=== PATIENT | female | born 1955 | race Hispanic/Latino ===

== ENCOUNTER → 2025-02-03 07:48 | Outpatient (ROUT) | payer SELFPAY ==
[2025-02-03 08:11] LABS: Hemoglobin A1C% w Est Avg Glu 6.6 % (4.0-6.0)
[2025-02-03 08:16] LABS: Alanine Aminotransferase 30 IU/L (<35); Albumin 4.3 g/dL (3.5-5.0); Albumin Globulin Ratio 1.3 (1.0-2.8); Alkaline Phosphatase 107 U/L (38-126); Aspartate Aminotransferase 28 IU/L (14-36); BUN Creatinine Ratio 34.2 (6-22); Bilirubin Total 0.5 mg/dL (0.2-1.3); Blood Urea Nitrogen 38 mg/dL (7-17); Carbon Dioxide 21 mmol/L (22-32); Chloride 107 mmol/L (98-107); Estimated Glomerular Filt Rate 53 mL/min (>60); Globulin 3.2 g/dL (1.7-4.1); Glucose 105 mg/dL (70-99); HEMOLYSIS < 15 (0-50); Potassium 5.1 mmol/L (3.4-5.1); Sodium 139 mmol/L (137-145); Total Protein 7.5 g/dL (6.3-8.2)
== END ==
LOC: LAB 07:49
PROVIDERS: Visit Provider Hospitalist
DX: E11.8 Type 2 diabetes mellitus with unspecified complications (principal); D64.9 Anemia, unspecified
CPT/HCPCS: 36415; 80053; 83036; 84443

== ENCOUNTER → 2025-02-10 08:00 | Outpatient (ROUT) | payer SELFPAY ==
[2025-02-10 08:38] LABS: Hematocrit 40.1 % (36-46); Hemoglobin 13.3 g/dL (12.0-16.0); Mean Corpuscular HGB Conc 33.1 % (30-36); Mean Corpuscular Hemoglobin 30.5 PG (26-34); Mean Corpuscular Volume 92.1 fL (80-100); Platelet Count 205 X10^3/uL (150-400); Red Blood Cell Count 4.36 X10^6/uL (4.0-5.2); Red Cell Distribution Width 15.4 % (11.6-14.8); White Blood Cell Count 6.1 X10^3/uL (4.5-11.0)
[2025-02-10 08:49] LABS: BUN Creatinine Ratio 29.3 (6-22); Blood Urea Nitrogen 27 mg/dL (7-17); Calcium 10.4 mg/dL (8.4-10.2); Carbon Dioxide 23 mmol/L (22-32); Chloride 109 mmol/L (98-107); Estimated Glomerular Filt Rate > 60 mL/min (>60); Glucose 129 mg/dL (70-99); HEMOLYSIS < 15 (0-50); Sodium 141 mmol/L (137-145)
[2025-02-10 09:20] LABS: Thyroid Stimulating Hormone 0.312 uIU/mL (0.47-4.68)
[2025-02-10 09:30] LABS: Hemoglobin A1C% w Est Avg Glu 6.6 % (4.0-6.0)
== END ==
LOC: LAB 08:04
PROVIDERS: Visit Provider Hospitalist
DX: I25.10 Atherosclerotic heart disease of native coronary artery without angina pectoris (principal); E03.9 Hypothyroidism, unspecified; E11.9 Type 2 diabetes mellitus without complications; I10 Essential (primary) hypertension; J44.9 Chronic obstructive pulmonary disease, unspecified
CPT/HCPCS: 36415; 80048; 83036; 84443; 85027

== ENCOUNTER 2025-03-02 15:55 | Observation (INO) | payer MEDICARE, MEDICAID, SELFPAY ==
[2025-03-02] VITALS (15 sets, daily range): BP systolic 94–135; BP diastolic 46–71; PULSE 52–60; RESP 15–20; TEMP 36.6–36.8; O2SAT 93–98; BMI 25.7
--- NOTE | 2025-03-02 15:59 | EKG_ITS ---
[facility] [address] [place] [id number] Test Date: 2025-03-02 Pat Name: ELLIOTT CAMACHO Department: [facility] Room: Gender: Female [employer] Steam: ANABELL : 1955 Requested By: Order Number: [id number] Reading MD: Octavio Wright MD Measurements Intervals [place] Rate: 57 P: 35 TX: 184 QRS: -6 QRSD: 84 T: -10 QT: 458 QTc: 445 Interpretive Statements Sinus bradycardia Minimal voltage criteria for LVH, may be normal variant ( R in aVL ) Electronically Signed On 03-03-2025 7:38:59 PDT by Octavio Wright MD
--- NOTE | 2025-03-02 15:59 | DI.CT.S_ITS ---
PROCEDURE: CT HEAD/BRAIN WO CON INDICATIONS: acutely altered mental status TECHNIQUE: Noncontrast 4.5 mm thick angled axial sections acquired from the foramen magnum to the vertex, with coronal and sagittal reformats. For radiation dose reduction, the following was used: automated exposure control, adjustment of mA and/or kV according to patient size. COMPARISON: None. FINDINGS: Image quality: Diagnostic. CSF spaces: Basal cisterns are patent. No extra-axial fluid collections. The ventricles are symmetric in size and shape. Brain: No intracranial bleeds or mass effect. There is cerebral volume loss, with resultant ventricular and sulcal prominence. There are periventricular and deep white matter chronic small vessel ischemic changes. There is intracranial internal carotid artery atherosclerosis. Skull and face: Calvarium and visualized facial bones appear intact, without suspicious lesions. Sinuses: Visualized sinuses and mastoids are clear. IMPRESSION: No acute intracranial pathology. Dictated by: Chaz Zuleta M.D. on 03/02/2025 at 16:38 Approved by: Chaz Zuleta M.D. on 03/02/2025 at 16:39
--- NOTE | 2025-03-02 15:59 | DI.RAD.S_ITS ---
PROCEDURE: XR CHEST 1V INDICATIONS: acute mental status change TECHNIQUE: One view of the chest was acquired. COMPARISON: None. FINDINGS: Surgical changes and devices: Postsurgical changes at the lower cervical spine. Lungs and pleura: Lungs are clear. No pleural effusions or pneumothorax. Mediastinum: Mediastinal contours appear normal. Heart size is normal. Bones and chest wall: Chronic appearing dislocation of the right glenohumeral joint. IMPRESSION: 1. No acute cardiopulmonary abnormality is seen. 2. Dislocation of the right glenohumeral joint is suspected to be chronic although correlation is recommended. Approved by: Surendra Mckeon M.D. on 03/02/2025 at 17:31
[2025-03-02 16:06] LABS: Add Manual Diff / Slide Review NO; Hematocrit 37.4 % (36-46); Hemoglobin 12.7 g/dL (12.0-16.0); Lymphocytes Absolute Auto 5100 /uL (1100-4500); Mean Corpuscular HGB Conc 33.9 % (30-36); Mean Corpuscular Hemoglobin 31.0 PG (26-34); Mean Corpuscular Volume 91.2 fL (80-100); Platelet Count 254 X10^3/uL (150-400)
[2025-03-02] MEDS: SODIUM CHLORIDE 0.9% 1,000 ML 1000 ML IV ×2 (16:13→18:05)
[2025-03-02 16:17] LABS: Alanine Aminotransferase 34 IU/L (<35); Albumin 4.5 g/dL (3.5-5.0); Albumin Globulin Ratio 1.3 (1.0-2.8); Alkaline Phosphatase 135 U/L (38-126); Blood Urea Nitrogen 47 mg/dL (7-17); Calcium 10.0 mg/dL (8.4-10.2); Carbon Dioxide 19 mmol/L (22-32); Chloride 109 mmol/L (98-107); Estimated Glomerular Filt Rate 33 mL/min (>60); Globulin 3.5 g/dL (1.7-4.1); Glucose 178 mg/dL (70-99); HEMOLYSIS < 15 (0-50); Lipase 211 U/L (23-300); Magnesium 1.9 mg/dL (1.6-2.3); Potassium 4.7 mmol/L (3.4-5.1); Sodium 140 mmol/L (137-145); Total Protein 8.0 g/dL (6.3-8.2)
[2025-03-02 16:18] LABS: Lactate (Lactic Acid) 2.2 mmol/L (0.7-2.1)
[2025-03-02 16:29] LABS: Troponin I < 0.012 ng/mL (0.01-0.034)
--- NOTE | 2025-03-02 17:32 | ED_ITS ---
HPI - General Adult General Chief complaint: Altered Mental Status Stated complaint: AMS Time Seen by Provider: 03/02/25 15:56 Source: patient and EMS Mode of arrival: EMS History of Present Illness HPI narrative: 69-year-old woman who lives at [facility] prior history of [place], for strokes was side today and then found unresponsive outside. No obvious trauma. Initial blood pressure lying down was 99/57, sugar was 154. She notes that she did have some vomiting last night. Blood pressure after 300 cc bolus was 110 systolic. She does complain of right shoulder pain and decreased mobility due to prior fracture notes that this is not at all related to today's visit. She states that she is confused, does not remember going outside and generally feels better lying flat Related Data Allergies Allergy/AdvReac Type Severity Reaction Status Date / Time No Known Drug Allergies Allergy Verified 03/02/25 16:04 Review of Systems Review of Systems Narrative: Pertinent positive and negative findings as per HPI Patient History Medical History (Updated 03/02/25 @ 19:51 by Yeni Bagley MD) Hypothyroidism (acquired) Diabetes type 2 COPD (chronic obstructive pulmonary disease) Coronary artery disease Stroke Smoking Status: Former smoker Exam Initial Vital Signs Initial Vital Signs: Vital Signs Temperature 98.2 F 03/02/25 16:04 Pulse Rate 57 L 03/02/25 16:04 Respiratory Rate 20 03/02/25 16:04 Blood Pressure 110/55 L 03/02/25 16:04 Pulse Oximetry 95 03/02/25 16:04 Oxygen Delivery Method Room Air 03/02/25 16:04 General: Pale, slightly confused, trying to be cooperative HEENT: Very dry mucous membranes, normal sclera with reactive pupils, Respiratory: Lungs are clear to auscultation, no wheezing no rales no rhonchi. Full and symmetrical air movement Cardiac: Regular rate and rhythm no murmurs Abdomen: Soft, nontender, no rebound or guarding, no flank pain Skin: Slightly pale, no diaphoresis Neurologic: Globally weak, mild right-sided weakness she feels as her baseline, no localizing symptoms she is able to speak in sentences Extremities: No new trauma. Minimal mobility to the right shoulder after prior fracture Psych: Cooperative, amnestic regarding much of the events of today Course Orders Ordered: ED Orders 03/02/25 15:54 Complete Blood Count AUTO DIFF Stat Comprehensive Metabolic Panel Stat Lactate (Lactic Acid) Stat Lipase Stat Magnesium Stat Troponin I Stat 03/02/25 15:59 CT head/brain wo con Stat XR chest 1V Stat Urinalysis and Microscopic Stat EKG-12 Lead Stat 03/02/25 16:56 Blood Culture Stat Discontinued Medications Sodium Chloride (Normal Saline 0.9%) 1,000 mls @ 1,000 mls/hr IV BOLUS ONE Stop: 03/02/25 16:57 Last Admin: 03/02/25 16:13 Dose: 1,000 mls/hr Documented By: KARINA Vital Signs Vital signs: Vital Signs - 8 hr 03/02/25 16:04 Temperature 98.2 F Pulse Rate 57 L Respiratory Rate 20 Blood Pressure 110/55 L Pulse Oximetry 95 Oxygen Delivery Method Room Air Medical Decision Making Lab Data 03/02/25 15:54 03/02/25 15:54 Labs: Lab Results 03/02/25 Range/Units 15:54 WBC 13.0 H (4.5-11.0) X10^3/uL RBC 4.10 (4.0-5.2) X10^6/uL Hgb 12.7 (12.0-16.0) g/dL Hct 37.4 (36-46) % MCV 91.2 (80-100) fL MCH 31.0 (26-34) PG MCHC 33.9 (30-36) % RDW 15.3 H (11.6-14.8) % Plt Count 254 (150-400) X10^3/uL Neut % (Auto) 46.1 L (50-75) % Lymph % (Auto) 38.8 (25-40) % [place] % (Auto) 12.2 (3-14) % Eos % (Auto) 1.9 L (2-4) % Baso % (Auto) 1.0 (0-2) % Neut # (Auto) 6000 (4338-0309) /uL Lymph # (Auto) 5100 H (2972-9337) /uL [place] # (Auto) 1600 H (0-900) /uL Eos # (Auto) 300 (0-450) /uL Baso # (Auto) 100 (0-100) /uL Sodium 140 (137-145) mmol/L Potassium 4.7 (3.4-5.1) mmol/L Chloride 109 H (98-107) mmol/L Carbon Dioxide 19 L (22-32) mmol/L BUN 47 H (7-17) mg/dL Creatinine 1.67 H (0.52-1.04) mg/dL Estimated GFR 33 L (>60) mL/min BUN/Creatinine Ratio 28.1 H (6-22) Glucose 178 H (70-99) mg/dL Lactate 2.2 H (0.7-2.1) mmol/L Calcium 10.0 (8.4-10.2) mg/dL Magnesium 1.9 (1.6-2.3) mg/dL Total Bilirubin 0.5 (0.2-1.3) mg/dL AST 28 (14-36) IU/L ALT 34 (<35) IU/L Alkaline Phosphatase 135 H (38-126) U/L Troponin I < 0.012 (0.01-0.034) ng/mL Total Protein 8.0 (6.3-8.2) g/dL Albumin 4.5 (3.5-5.0) g/dL Globulin 3.5 (1.7-4.1) g/dL Albumin/Globulin Ratio 1.3 (1.0-2.8) Lipase 211 (23-300) U/L MDM Narrative Medical decision making narrative: CC: Syncopal episode Complicating co-morbidities: Lives at assisted living [facility] Data collected from: patient, medics Social determinants of health that may influence the patients condition: Currently at assisted living Medical records reviewed: Stroke, primary hypertension, COPD, type 2 diabetes, coronary artery disease, hypothyroidism Differential considered: Dehydration, stroke, acute coronary event, cardiac syncope Exam documented above, pertinent findings include: Pale, very dry mucous membranes, exam is otherwise completely nonlocalizing without abdominal pain or evidence of trauma Lab Test results independently reviewed as above. Pertinent findings: CBC shows mild leukocytosis at 13 with neutrophils at 46.1, no anemia Chemistries show an acute kidney injury creatinine on February 10 was 0.9 and now is 1.67. CO2 is slightly low at 19. Troponin is undetectable Lactic acid is 2.2 Liver studies are reassuring Independently reviewed EKG: Sinus bradycardia at a rate of 57. No acute ischemic changes Imaging studies independently reviewed: CT scan brain shows no acute pathology Chest x-ray is unremarkable, demonstrates chronic dislocation of the right glenohumeral joint Treatments: 2 L of saline Discussion: 69-year-old lady currently living at [facility] vomiting last night not eating and drinking as well over the last couple of days, syncopal episode on the front lawn of the assisted living facility initially thought to be completely unresponsive. Was fairly significantly hypotensive on arrival. Improvement with volume and brought to the emergency department. No evidence of stroke, heart attack, sepsis, she is significantly dehydrated to the point that she has acute kidney injury with overall global weakness. Initial lactate was elevated and with hydration has come down nicely. Patient has little recollection of the events of this morning or the syncopal episode in the front lawn without any trauma associated. Care is reviewed with hospitalist service and patient will be admitted for her significant dehydration with the acute kidney injury. Discharge Plan Departure Patient Disposition: Admitted as Observation Clinical Impression: Acute kidney injury, Acute dehydration, Syncope, vasovagal Altered mental status Qualifiers: Altered mental status type: transient alteration of awareness Qualified Code(s): R40.4 - Transient alteration of awareness Admit Date/Time: 03/02/25 19:01
[2025-03-02 17:37] LABS: Reflexed Lactate in 2 Hours Y
[2025-03-02 18:17] LABS: Lactate 2HR (Lactic Acid Rflx) 1.4 mmol/L (0.7-2.1)
[2025-03-02 18:28] LABS: Troponin I < 0.012 ng/mL (0.01-0.034)
[2025-03-02 19:53] LABS: Appearance Urine UA CLEAR; Bilirubin Urine UA NEGATIVE (NEGATIVE); Color Urine UA YELLOW; Glucose Urine UA NEGATIVE (Negative); Ketones Urine UA NEGATIVE (NEGATIVE); Leukocyte Esterase Urine UA NEGATIVE (NEGATIVE); Nitrite Urine UA NEGATIVE (Negative); Occult Blood Urine UA NEGATIVE (Negative); Protein Urine UA TRACE (Negative); Specific Gravity Urine UA 1.020 (1.000-1.035); Urobilinogen Urine UA 0.2 E.U./dL (0.2)
[2025-03-02 19:56] LABS: pH Urine UA 5.5 (4.5-8.0)
[2025-03-02 19:58] LABS: Culture Indicated Urine Cult Not Indicated
[2025-03-02] MEDS: SODIUM CHLORIDE 0.9% 1,000 ML 100 ML IV (21:01)
--- NOTE | 2025-03-02 22:57 | PM.HP.1 ---
History of Present Illness History of Present Illness Date Patient Seen: 03/02/25 Time Patient Seen: 22:57 Chief complaint: AMS Narrative: 69-year-old female with past medical history of CVA, [place], hypothyroidism, COPD not oxygen dependent, diabetes and hypertension presents with unresponsive. Of note the patient lives at [facility] living and was found today at her care facility unresponsive outside. There is no report of any trauma and on arrival by EMS blood pressure was noted to be 99/57 and glucose of 154. The patient now reports that she did have some nausea and vomiting last night but denies any GI bleeding. The patient is was given IV fluid bolus with improvement in her systolic blood pressure in the 110s. The patient noted to have chronic right shoulder pain but denies any new pain. Patient otherwise was still somewhat confused and unable to give a reliable history. In the emergency room, the patient was hemodynamically stable now. Labs shows a WBC of 13 creatinine 1.67 glucose 178 troponin negative less than 0.012 lactate slightly high at 2.2. Of note IV fluid was given and lactate normalized. 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 UA was also negative for any sign of UTI. [facility] Medical History (Updated 03/02/25 @ 19:51 by Yeni Bagley MD) Hypothyroidism (acquired) Diabetes type 2 COPD (chronic obstructive pulmonary disease) Coronary artery disease Stroke Social History Smoking Status: Former smoker Meds Home Medications and Allergies Allergies Allergy/AdvReac Type Severity Reaction Status Date / Time No Known Drug Allergies Allergy Verified 03/02/25 16:04 Review of Systems Review of Systems ROS: Yes All systems reviewed with the patient and are negative except as otherwise documented Exam Vital Signs (past 8 hours): - 03/02/25 15:59 03/02/25 15:59 03/02/25 16:00 Temperature Pulse Rate 58 L 56 L Respiratory Rate 18 16 Blood Pressure 110/55 L Pulse Oximetry 93 95 Oxygen Delivery Method 03/02/25 16:04 03/02/25 16:33 03/02/25 16:35 Temperature 98.2 F Pulse Rate 57 L 58 L 58 L Respiratory Rate 20 19 Blood Pressure 110/55 L Pulse Oximetry 95 94 97 Oxygen Delivery Method Room Air 03/02/25 16:35 03/02/25 17:00 03/02/25 17:00 Temperature Pulse Rate 53 L Respiratory Rate 18 Blood Pressure 107/50 L 94/46 L Pulse Oximetry 97 Oxygen Delivery Method 03/02/25 17:30 03/02/25 17:30 03/02/25 18:00 Temperature Pulse Rate 52 L 57 L Respiratory Rate 17 18 Blood Pressure 97/47 L Pulse Oximetry 94 97 Oxygen Delivery Method 03/02/25 18:00 03/02/25 18:30 03/02/25 18:30 Temperature Pulse Rate 56 L Respiratory Rate 18 Blood Pressure 115/58 L 116/57 L Pulse Oximetry 97 Oxygen Delivery Method 03/02/25 19:00 03/02/25 19:00 03/02/25 19:30 Temperature Pulse Rate 55 L 52 L Respiratory Rate 17 18 Blood Pressure 115/57 L Pulse Oximetry 95 95 Oxygen Delivery Method 03/02/25 19:30 03/02/25 20:00 03/02/25 20:00 Temperature Pulse Rate 60 Respiratory Rate 15 Blood Pressure 115/57 L 135/63 Pulse Oximetry 98 Oxygen Delivery Method 03/02/25 20:30 03/02/25 20:30 03/02/25 21:00 Temperature Pulse Rate 58 L Respiratory Rate 18 Blood Pressure 128/58 L 116/62 Pulse Oximetry 97 Oxygen Delivery Method 03/02/25 21:00 Temperature Pulse Rate 59 L Respiratory Rate 20 Blood Pressure Pulse Oximetry 97 Oxygen Delivery Method Oxygen Delivery Method Room Air Narrative Exam Narrative: Physical Exam: GENERAL: The patient is not in any acute distressed. Awake and alert. HEENT: Nonicteric sclerae, PERRLA, EOMI. Oropharynx clear. Moist mucous membranes. Conjunctivae appear well perfused. HEART: Regular rate and rhythm without murmurs. No lower extremities edema. LUNGS: Clear to auscultation bilaterally. No wheezing, crackles or rhonchi ABDOMEN: Soft, positive bowel sounds, nontender. SKIN: No rash, no excessive bruising, petechiae, or purpura. NEUROLOGIC: AxO x 3. Cranial nerves II-XII intact without motor/sensory deficit. Objective Labs 03/02/25 15:54 03/02/25 15:54 Labs: Laboratory Results - last 24 hr 07/04/1903/02/25 03/02/25 15:54 17:59 19:17 WBC 13.0 H RBC 4.10 Hgb 12.7 Hct 37.4 MCV 91.2 MCH 31.0 MCHC 33.9 RDW 15.3 H Plt Count 254 Neut % (Auto) 46.1 L Lymph % (Auto) 38.8 [place] % (Auto) 12.2 Eos % (Auto) 1.9 L Baso % (Auto) 1.0 Neut # (Auto) 6000 Lymph # (Auto) 5100 H [place] # (Auto) 1600 H Eos # (Auto) 300 Baso # (Auto) 100 Sodium 140 Potassium 4.7 Chloride 109 H Carbon Dioxide 19 L BUN 47 H Creatinine 1.67 H Estimated GFR 33 L BUN/Creatinine Ratio 28.1 H Glucose 178 H Lactate 2.2 H 1.4 Calcium 10.0 Magnesium 1.9 Total Bilirubin 0.5 AST 28 ALT 34 Alkaline Phosphatase 135 H Troponin I < 0.012 < 0.012 Total Protein 8.0 Albumin 4.5 Globulin 3.5 Albumin/Globulin Ratio 1.3 Lipase 211 Urine Color Yellow Urine Appearance Clear Urine pH 5.5 Ur Specific [place] 1.020 Urine Protein Trace H Urine Glucose (UA) Negative Urine Ketones Negative Urine Occult Blood Negative Urine Nitrate Negative Urine Bilirubin Negative Urine Urobilinogen 0.2 Ur Leukocyte Esterase Negative Urine RBC None seen Urine WBC 0-1/hpf Ur Squamous Epith Cells 0-1 /hpf Urine Bacteria Moderate (10-30) H Hyaline Casts 0-1/lpf Ur Culture Indicated? Cult not indicated Vol Urine Centrifuged 10ml (spun) Assessment & Plan Assessment & Plan narrative: Syncope found unresponsive. Admit the patient to medical telemetry under observation. Of note no clear etiology for patient's syncope other than possible dehydration and hypovolemia. CT head is negative. UA and chest x-ray are negative for any sign of infection. Patient was hypovolemic but responsive to IV fluid bolus. Will continue IV fluid and monitor hemodynamics closely. Of note Trope and EKG showed no suggest acute ischemia or arrhythmia. Patient mentation is back to baseline oriented x 4. MALLORY. Creatinine 1.67. Likely from dehydration. IV fluid monitor renal function. Diabetes. Monitor glucose and will give subcu insulin as needed Generalized weakness. PT OT. Mild elevated lactic acid. 2.2. Resolved and normalized with IV fluid. No other sign of infection. Hypothyroidism. Resume home Synthroid. COPD. No sign of exacerbation. Resume home inhalers. DVT prophylaxis heparin subcu. CODE STATUS DNR/DNI Disposition likely back to assisted living in 2 days. - As the provider of this telehealth evaluation, requested by the patient's evaluating physician, I attest that I introduced myself to the patient, provided my credentials and determined that telemedicine via a real-time, 2 way interactive audio and video platform is an appropriate and effective means of providing this service. - I reviewed the patient's chart and had a discussion with the member of the patient's treatment team. - The patient and I mutually agreed with continuation of this evaluation via telemedicine. The patient consented for the telemedicine evaluation. - This virtual encounter was taken place from [place] by Dr. Joaquín Reilly. The patient was evaluated at [facility]. The encounter was approximately 35 minutes. The nurse was present during the entire time of the encounter and was able to move the stethoscope in appropriate directions. Time-Based Coding :: [TOTAL MINUTES] spent with patient and on the chart (including review of chart, obtaining history, exam, reviewing outside data, placing orders, documenting exam and treatment plan, and counseling patient) on [DATE].
[2025-03-02] MEDS: HEPARIN 5,000 UNIT/ML VIAL 5000 UNIT SUBCUT (23:15)
[2025-03-03] VITALS (7 sets, daily range): BP systolic 120–186; BP diastolic 63–99; PULSE 57–81; RESP 16–21; TEMP 36.3–37.6; O2SAT 95–99
--- NOTE | 2025-03-03 01:20 | PC.NURSE ---
Patient is alert and oriented. Breath sounds CTA with RA sat of 98%. HRR but bradycardic with rate in upper 50's. Telemetry reading was SB w/1st degree AVB. Denied nausea. BT present and abdomen is soft. Reports she is incontinent of urine so is wearing a brief; purewick placed as states she does not know when she has to urinate at night. Is able to turn herself in bed. Gait not assessed at this time. Is wearing bilateral calf SCD's. Reports chronic tingling in fingertips of both hands. Generalized weakness present. Denies any pain at present time. Fall risk scoreis high and bed alarm is activated.
[2025-03-03 06:33] LABS: Add Manual Diff / Slide Review NO; Hematocrit 32.8 % (36-46); Hemoglobin 11.1 g/dL (12.0-16.0); Lymphocytes Absolute Auto 2400 /uL (1100-4500); Mean Corpuscular HGB Conc 33.9 % (30-36); Mean Corpuscular Hemoglobin 31.1 PG (26-34); Mean Corpuscular Volume 91.8 fL (80-100); Platelet Count 181 X10^3/uL (150-400)
[2025-03-03] MEDS: SODIUM CHLORIDE 0.9% 1,000 ML 100 ML IV (06:40)
[2025-03-03 06:56] LABS: Blood Urea Nitrogen 32 mg/dL (7-17); Calcium 8.4 mg/dL (8.4-10.2); Carbon Dioxide 19 mmol/L (22-32); Chloride 115 mmol/L (98-107); Estimated Glomerular Filt Rate > 60 mL/min (>60); Glucose 98 mg/dL (70-99); HEMOLYSIS < 15 (0-50); Potassium 3.9 mmol/L (3.4-5.1); Sodium 141 mmol/L (137-145)
[2025-03-03] MEDS: LEVOTHYROXINE 88 MCG TABLET PO (07:08)
--- NOTE | 2025-03-03 07:23 | P.PN_ITS ---
Subjective Subjective Interval history: Summary: 69-year-old female with past medical history of CVA, [place], hypothyroidism, COPD not oxygen dependent, diabetes and hypertension presents with unresponsive. Of note the patient lives at [facility] living and was found today at her care facility unresponsive outside. There is no report of any trauma and on arrival by EMS blood pressure was noted to be 99/57 and glucose of 154. The patient now reports that she did have some nausea and vomiting last night but denies any GI bleeding. The patient is was given IV fluid bolus with improvement in her systolic blood pressure in the 110s. The patient noted to have chronic right shoulder pain but denies any new pain. Patient otherwise was still somewhat confused and unable to give a reliable history. In the emergency room, the patient was hemodynamically stable now. Labs shows a WBC of 13 creatinine 1.67 glucose 178 troponin negative less than 0.012 lactate slightly high at 2.2. Of note IV fluid was given and lactate normalized. 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 UA was also negative for any sign of UTI. S: She feels a little bit better, still weak. She was improved with IV fluids. Physical therapy will see her today. She did vomit once at home but denies diarrhea. Exam Vital Signs (past 8 hours): - 03/03/25 00:01 03/03/25 01:07 03/03/25 04:11 Temperature 97.4 F L 97.3 F L Pulse Rate 57 L 66 Respiratory Rate 16 16 Blood Pressure 126/70 120/63 Pulse Oximetry 95 95 Oxygen Delivery Method Room Air Oxygen Flow Rate 0 0 Oxygen Delivery Method Room Air Oxygen Flow Rate 0 Narrative Exam Narrative: NAD, alert and oriented. Fluent speech. Lungs are clear, normal rate and effort. Heart is regular, no murmur gallop or rub. Abdomen is soft, non distended. Extremities are free of edema. Objective Labs 03/03/25 06:15 03/03/25 06:15 Labs: Laboratory Results - last 24 hr 03/02/25 03/02/25 03/02/25 15:54 17:59 19:17 WBC 13.0 H RBC 4.10 Hgb 12.7 Hct 37.4 MCV 91.2 MCH 31.0 MCHC 33.9 RDW 15.3 H Plt Count 254 Neut % (Auto) 46.1 L Lymph % (Auto) 38.8 [place] % (Auto) 12.2 Eos % (Auto) 1.9 L Baso % (Auto) 1.0 Neut # (Auto) 6000 Lymph # (Auto) 5100 H [place] # (Auto) 1600 H Eos # (Auto) 300 Baso # (Auto) 100 Sodium 140 Potassium 4.7 Chloride 109 H Carbon Dioxide 19 L BUN 47 H Creatinine 1.67 H Estimated GFR 33 L BUN/Creatinine Ratio 28.1 H Glucose 178 H POC Whole Bld Glucose Lactate 2.2 H 1.4 Calcium 10.0 Magnesium 1.9 Total Bilirubin 0.5 AST 28 ALT 34 Alkaline Phosphatase 135 H Troponin I < 0.012 < 0.012 Total Protein 8.0 Albumin 4.5 Globulin 3.5 Albumin/Globulin Ratio 1.3 Lipase 211 Urine Color Yellow Urine Appearance Clear Urine pH 5.5 Ur Specific [place] 1.020 Urine Protein Trace H Urine Glucose (UA) Negative Urine Ketones Negative Urine Occult Blood Negative Urine Nitrate Negative Urine Bilirubin Negative Urine Urobilinogen 0.2 Ur Leukocyte Esterase Negative Urine RBC None seen Urine WBC 0-1/hpf Ur Squamous Epith Cells 0-1 /hpf Urine Bacteria Moderate (10-30) H Hyaline Casts 0-1/lpf Ur Culture Indicated? Cult not indicated Vol Urine Centrifuged 10ml (spun) 03/03/25 03/03/25 01:18 06:15 WBC 7.0 RBC 3.57 L Hgb 11.1 L Hct 32.8 L MCV 91.8 MCH 31.1 MCHC 33.9 RDW 15.4 H Plt Count 181 Neut % (Auto) 53.4 Lymph % (Auto) 34.7 [place] % (Auto) 8.9 Eos % (Auto) 2.7 Baso % (Auto) 0.3 Neut # (Auto) 3800 Lymph # (Auto) 2400 [place] # (Auto) 600 Eos # (Auto) 200 Baso # (Auto) 0 Sodium 141 Potassium 3.9 Chloride 115 H Carbon Dioxide 19 L BUN 32 H Creatinine 0.93 Estimated GFR > 60 BUN/Creatinine Ratio 34.4 H Glucose 98 POC Whole Bld Glucose 112 H Lactate Calcium 8.4 Magnesium Total Bilirubin AST ALT Alkaline Phosphatase Troponin I Total Protein Albumin Globulin Albumin/Globulin Ratio Lipase Urine Color Urine Appearance Urine pH Ur Specific [place] Urine Protein Urine Glucose (UA) Urine Ketones Urine Occult Blood Urine Nitrate Urine Bilirubin Urine Urobilinogen Ur Leukocyte Esterase Urine RBC Urine WBC Ur Squamous Epith Cells Urine Bacteria Hyaline Casts Ur Culture Indicated? Vol Urine Centrifuged [facility] Medical History Hypothyroidism (acquired) Diabetes type 2 COPD (chronic obstructive pulmonary disease) Coronary artery disease Stroke Social History household members: none Smoking Status: Current some day smoker alcohol intake: never Assessment & Plan Assessment & Plan narrative: 1. Syncope found unresponsive. Improved. Likely relates to volume depletion. 2. MALLORY, Improved. Likely from dehydration. IV fluid monitor renal function. 3. Diabetes 2. Monitor glucose and will give subcu insulin as needed 4. Generalized weakness. PT OT. 5. Mild elevated lactic acid. 2.2. Resolved and normalized with IV fluid. No other sign of infection. 6. Hypothyroidism. Resume home Synthroid. 7. COPD. No sign of exacerbation. Resume home inhalers. PLAN: -Continue IVF. -PT, OT assessments. She was as a walker to ambulate at [place]. DVT prophylaxis heparin subcu. CODE STATUS DNR/DNI Disposition likely back to assisted living in 2 days. Time-Based Coding :: [TOTAL MINUTES] spent with patient and on the chart (including review of chart, obtaining history, exam, reviewing outside data, placing orders, documenting exam and treatment plan, and counseling patient) on [DATE].
[2025-03-03] MEDS: ASPIRIN EC 81 MG TABLET PO (08:12)
[2025-03-03] MEDS: GABAPENTIN 100 MG CAPSULE PO ×3 (08:12→21:19)
[2025-03-03] MEDS: HEPARIN 5,000 UNIT/ML VIAL 5000 UNIT SUBCUT ×2 (08:12→21:20)
[2025-03-03] MEDS: CALCIUM CARBONATE 500 MG TAB 400 MG PO ×4 (08:12→21:19)
[2025-03-03] MEDS: PANTOPRAZOLE DR 20 MG TABLET PO ×2 (08:12→21:19)
[2025-03-03] MEDS: CHOLECALCIFEROL (VITAMIN D3) 1,000 UNIT TABLET 2000 UNIT PO (08:12)
[2025-03-03] MEDS: CLOPIDOGREL 75 MG TABLET PO (08:12)
[2025-03-03] MEDS: METOPROLOL IR 50 MG TABLET PO (08:12)
--- NOTE | 2025-03-03 14:10 | OT.IP.EVAL ---
Past Medical History (Last Reviewed 03/03/25 @ 07:27 by Shahbaz Og MD) COPD (chronic obstructive pulmonary disease) Coronary artery disease Diabetes type 2 Hypothyroidism (acquired) Stroke Occupational Therapy Inpatient Evaluation/Re-Eval M1 PT/OT-IP Prior Functional Status Start: 03/03/25 14:16 Freq: NEEDED Status: Active Protocol: Document 03/03/25 15:31 [facility] (Rec: 03/03/25 15:38 [facility] Desktop) Medical Review Prior Functional Status Medical History Yes Reviewed Communication Pt is hypoverbal Mobility and Gait Reports mod I with rollator at [facility] and that she does her own bathing and dressing there. Pt cannot raise her right arm and has difficulty to do her hair. 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 Activities of Daily Pt states able to do all ADL needs and able to call for Living and IADL's assist if needed. Pt has assist for IADL needs. Social History Household Members none Living Arrangements Assisted Living Number of Floors ( One Floor Floors) Number of Stairs To Accessible living at [facility] Enter/Railing? Home Equipment Four Wheel Walker Additional Social Accessible entrance and BR at [facility] History Comment M2 OT-IP Current Condition Start: 03/03/25 15:31 Freq: Status: Active Protocol: Document 03/03/25 15:31 [facility] (Rec: 03/03/25 15:38 [facility] Desktop) Occupational Therapy Current Condition Current Condition Evaluation Date 03/03/25 Treatment Diagnosis Dehydration,syncope Diagnosis Onset Date 03/02/25 M3 OT- IP Subjective and Pain Start: 03/03/25 15:31 Freq: Status: Active Protocol: Document 03/03/25 15:31 [facility] (Rec: 03/03/25 15:38 [facility] Desktop) OT- Subjective Occupational Therapy Visit Type Type Initial Evaluation Visit Start Time 13:52 Visit Stop Time 14:10 Occupational Therapy Visit Comments Patient Comments Pt agreed to get up and use the bathroom. OT Pain Assessment Pain When Pain Assessed At Rest Pain Present Pain Present Denied Pain M4 OT- IP ADL's Start: 03/03/25 15:31 Freq: Status: Active Protocol: Document 03/03/25 15:31 [facility] (Rec: 03/03/25 15:38 [facility] Desktop) OT [id number] Comments OT Self-Feeding Not at meal time. Comments OT ADL-Grooming Comments OT Grooming Comments Not observed. OT ADL-Oral Care Comments Oral Care Comments Not observed. OT ADL-Dressing General Eval Lower Body Dressing Standby Assistance Ability Areas Needing Socks Assistance Comments OT Dressing Comments Pt able to jasbir/doff socks while seated. OT ADL-Toileting General Evaluation Toileting Ability Standby Assistance Comments OT Toileting Pt able to use the toilet with SBA for set-up. Comments OT ADL-Bathing Comments OT Bathing Comments At this time best to have at least SBA for safety for showering needs. M5 OT- IP IADL's Start: 03/03/25 15:31 Freq: Status: Active Protocol: Document 03/03/25 15:31 [facility] (Rec: 03/03/25 15:38 [facility] Desktop) OT-Instrumental Activities of Daily Living Home Safety Awareness Awareness of Need Good Awareness for Assistance at Home Ability to Problem Able to Problem Solve Solve Emergency Situations Medication Management Medication Caregiver Administers Management Money Management Money Management Caregiver Provides Assistance Meal Preparation Meal Preparation Caregiver Provides Assist Hat Block Bench Hand Hat Block Bench Hand Caregiver Provides Assist M6 OT- IP Functional Cognition Start: 03/03/25 15:31 Freq: Status: Active Protocol: Document 03/03/25 15:31 [facility] (Rec: 03/03/25 15:38 [facility] Desktop) Cognitive Factors Limiting Selfcare Function Cognitive Ability Level of Alertness Alert Patient Orientation Name,Age,Birthday,Month,Date,Year,Day of Week,Place, Situation Attention Span Capable of Focused Attention,Capable of Sustained Ability Attention Ability to Follow Able to Follow One Step Commands Commands Cognitive Comments Cognitive Assessment Pt able to follow directions for ADL and mobility needs Comments . OT- Vision and Hearing OT- Hearing Assessment OT- Hearing WFL Assessment OT- Vision Assessment Visual Acuity Glasses For Reading Visual Attentiveness WFL Occular Pursuits WFL M7 OT- IP Mobility and Balance Start: 03/03/25 15:31 Freq: Status: Active Protocol: Document 03/03/25 15:31 [facility] (Rec: 03/03/25 15:38 [facility] Desktop) OT- Bed Mobility Assessment Supine to Sit Supine to Sit Assist Standby Assistance OT-Transfer Assessment Sit to and From Stand Sit to and from Contact Guard Assistance Stand Transfers Transfer Ability Contact Guard Assistance Technique Transfer Destination Bed,Chair Transfer Technique Stand Step Pivot Devices Transfer Assistive Gait Belt,Front Wheeled Walker Devices Comments Mobility Comments CGA with FWW able to walk form the bed to toilet and to the recliner. Pt main complaints of begin very tired. OT- Balance Assessment Sitting Balance and Reactions Static Sitting Normal Balance Ability Dynamic Sitting Good Balance Ability Standing Balance and Reactions Static Standing Good Balance Ability Dynamic Standing Fair Balance Ability M8 OT- IP Objective Assessments Start: 03/03/25 15:31 Freq: Status: Active Protocol: Document 03/03/25 15:31 [facility] (Rec: 03/03/25 15:38 [facility] Desktop) OT Gross Range of Motion Upper Extremity Range of Motion Assessment Right Impaired OT Strength Upper Extremity Strength Assessment Right Impaired Comments Strength Comments Pt has chronic right shoulder issues and not able to actively raise her arm up. OT- Coordination Assessment Upper Extremity Finger to Nose Test Within Functional Limits M9 OT- IP Assessment and Plan Start: 03/03/25 15:31 Freq: Status: Active Protocol: Document 03/03/25 15:38 [facility] (Rec: 03/03/25 15:41 [facility] Desktop) OT Summary Assessment and Plan Potential Rehabilitation Excellent Potential Analytic Complexity Low at Evaluation Summary OT Impairments Balance,Functional Mobility,Grooming,Dressing,Toileting ,Bathing,Toilet Transfers,Shower Transfers,Activity Tolerance Progress Towards Progressing Toward Goals Goals Assessment Summary Pt low complexity and main barriers are decreased activity tolerance and decreased dynamic balance. Pt if going home will benefit from increased assist at home. Pt able to get up from the bed and go to the bathroom with FWW and CGA. Pt to go home with more assist when medically stable. Goals Self-Feeding Goal Independent Grooming Goal Independent Dressing Goal Independent Toileting Goal Independent Toilet Transfer Goal Independent Shower Transfer Goal Independent Days to Meet Goals 5 Frequency of Treatment Other frequency 5x/week Treatment Plan OT Treatment Plan ADL Training,Functional Mobility,Patient/Family Education,Discharge Planning Discharge Recommendations OT Discharge Home with 24/ Assist Available Recommendations Transportation Needs Wheelchair/Cabulance at Discharge
--- NOTE | 2025-03-03 14:24 | PT.IIE ---
Medical History (Last Reviewed 03/03/25 @ 07:27 by Shahbaz Og MD) COPD (chronic obstructive pulmonary disease) Coronary artery disease Diabetes type 2 Hypothyroidism (acquired) Stroke Physical Therapy Inpatient Evaluation/Re-Eval M1 PT/OT-IP Prior Functional Status Start: 03/03/25 14:16 Freq: NEEDED Status: Active Protocol: Document 03/03/25 13:51 [facility] (Rec: 03/03/25 14:24 [facility] Desktop) Medical Review Prior Functional Status Medical History Yes Reviewed Communication Pt is hypoverbal Mobility and Gait Reports mod I with rollator at [facility] and that she does her own bathing and dressing there. Pt cannot raise her right arm and needs help with hair care. 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 Social History Household Members none Living Arrangements Assisted Living Number of Floors ( One Floor Floors) Number of Stairs To Accessible living at [facility] Enter/Railing? Home Equipment Four Wheel Walker Additional Social Accessible entrance and BR at [facility] History Comment M2 PT-IP Current Condition Start: 03/03/25 14:16 Freq: NEEDED Status: Active Protocol: Document 03/03/25 13:51 [facility] (Rec: 03/03/25 14:24 [facility] Desktop) Physical Therapy Current Condition Current Condition Evaluation Date 03/03/25 Treatment Diagnosis Dehydration and syncope M3 PT-IP Subjective Start: 03/03/25 14:16 Freq: NEEDED Status: Active Protocol: Document 03/03/25 13:51 [facility] (Rec: 03/03/25 14:24 [facility] Desktop) Subjective Physical Therapy Visit Type Type Initial Evaluation Visit Start Time 13:51 Visit Stop Time 14:07 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 0 Physical Therapy Visit Comments Patient Comments Pt is hypoverbal, needing to get to BR on arrival M4 PT-IP Mobility and Gait Start: 03/03/25 14:16 Freq: NEEDED Status: Active Protocol: Document 03/03/25 13:51 [facility] (Rec: 03/03/25 14:24 [facility] Desktop) PT-Bed Mobility Assessment Supine to Sit Supine to Sit Standby Assistance,1 Person Assistance,Head of Bed Elevated PT-Transfer Assessment Sit to and From Stand Sit to and from Contact Guard Assistance,1 Person Assistance,Use of Stand Upper Extremities Equipment Transfer Assistive Gait Belt,Front Wheeled Walker Device Transfers Transfer Destination Chair,Toilet Transfer Technique Ambulation Transfer Ability Level of Assist Contact Guard Assistance,1 Person Assistance Comments Mobility Comments Pt c/o fatigue and BP in LUE in sitting in chair is 178 /97 and O2 sats 97% on RA after mobility Gait Assessment Gait Gait Assistance Contact Guard Assist Required: Distance (Feet) 20 Able to Maintain Yes Weight Bearing Status During Gait Assistive Devices Assistive Device Gait Belt,Front Wheeled Walker Gait Deviations General Gait Pattern Decreased Stride Length,Decreased Feet Clearance,Flexed Trunk Factors Limiting Gait Function Factors Limiting Decreased Activity Tolerance,Poor Balance,Poor Safety Gait Function Awareness PT-Balance Assessment Sitting Balance and Reactions Static Sitting Normal Balance Ability Dynamic Sitting Good Balance Ability Standing Balance and Reactions Static Standing Good Balance Ability Dynamic Standing Good Balance Ability Device Used RW M5 PT-IP Objective Assessments Start: 03/03/25 14:16 Freq: NEEDED Status: Active Protocol: Document 03/03/25 13:51 [facility] (Rec: 03/03/25 14:24 [facility] Desktop) Orientation Orientation/Cognition Level of Alertness Alert Orientation Name,Birthday Language Function No Deficits Noted Ability Safety Awareness Decreased Safety Awareness Memory Description No Deficits Noted Gross Range of Motion Upper Extremity ROM Impairments Defer to OT, right shoulder changes Lower Extremity ROM Impairments Only functionally observed today given urgent toileting needs and starting to get up with nsg on arrival, shuffles both feet with gait Strength Comments Strength Comments NT Coordination Assessment Assessment Coordination NT Comments Sensation Assessment Comments Sensation Comments NT M6 PT-IP Treatment Start: 03/03/25 14:16 Freq: NEEDED Status: Active Protocol: Document 03/03/25 13:51 [facility] (Rec: 03/03/25 14:24 [facility] Desktop) Physical Therapy Treatment Education Education Provided Safety M7 PT-IP Assessment and Plan Start: 03/03/25 14:16 Freq: NEEDED Status: Active Protocol: Document 03/03/25 13:51 [facility] (Rec: 03/03/25 14:24 [facility] Desktop) PT Summary Assessment and Plan Potential Rehabilitation Fair Potential Status of Condition Evolving at Evaluation Summary Impairments Strength,Balance,Coordination,Bed Mobility,Transfers, Gait,Activity Tolerance Assessment Summary Pt is a 69 y/o female who lives at [facility] and reports that she is usually mod I with rollator. She reports a syncopal episode and she was adm with dehydration. Pt fatigues quickly with short mobility and toileting today. Recommend increased assistance and PT consult at d/c. May try to check orthostatics and gait with rollator next treatment date if she remains in the acute setting. Goals Bed Mobility Goal Independent Transfer Goal Independent,Front Wheeled Walker,Four Wheeled Walker Gait Goal Independent,Front Wheel Walker,Four Wheel Walker Gait Distance 20 Days to Meet Goals 2 Frequency of Treatment Frequency Of Once a Day Treatment Treatment Plan Physical Therapy Bed Mobility Training,Transfer Training,Gait Training, Treatment Plan Therapeutic Exercise,Balance Retraining,Discharge Planning,Hot or Cold Pack,Neuromuscular Re-ed, Coordination Retraining,Manual Therapy Other Recommend checking orthostatics and try rollator in Recommendations and future treatments Next Treatment Focus Recommendations To Nursing Amount of Assist 1 Person Assist Needed Discharge Recommendations Other Discharge D/c back to [facility] with increased assistance as needed and Recommendations PT consult Transportation Needs Private Vehicle at Discharge - PT assist x1
[2025-03-03] MEDS: ACETAMINOPHEN 325 MG TABLET 650 MG PO (16:13)
[2025-03-03] MEDS: ATORVASTATIN 20 MG TABLET 80 MG PO (21:19)
[2025-03-03] MEDS: MIRTAZAPINE 15 MG TABLET 30 MG PO (21:19)
[2025-03-03] MEDS: SODIUM CHLORIDE 0.9% FLUSH 10 ML IV (21:22)
--- NOTE | 2025-03-03 22:37 | PC.NURSE ---
Patient is alert and oriented. Breath sounds CTA with RA sat of 99%. HRR w/telemetry reading of SR. BP is elevated at 177/91; per previous RN, MD Joaquín was made aware of hypertension. Denied nausea. BT hyperactive and patient reports having had multiple formed BM's on previous shift. Is voiding on toilet but also incontinent of urine; does have some urinary urgency but denied dysuria. Is able to turn herself in bed. Out of bed with walker and SBA. Is still weak but states she believes she is at baseline. Had SCD's on at shift change but requested they be left off at night as they make it difficult to sleep; reminded to ankle wave and she verbalized understanding. Denied pain. Fall risk score is high and bed alarm is activated.
[2025-03-04 01:00] VITALS: BP 167/93; PULSE 67; RESP 16; TEMP 36.2; O2SAT 94
[2025-03-04 05:00] VITALS: BP 186/93; PULSE 66; RESP 17; TEMP 36.2; O2SAT 99
[2025-03-04] MEDS: LEVOTHYROXINE 88 MCG TABLET PO (06:12)
[2025-03-04 06:50] LABS: Blood Urea Nitrogen 20 mg/dL (7-17); Calcium 9.9 mg/dL (8.4-10.2); Carbon Dioxide 22 mmol/L (22-32); Chloride 108 mmol/L (98-107); Estimated Glomerular Filt Rate > 60 mL/min (>60); Glucose 143 mg/dL (70-99); HEMOLYSIS < 15 (0-50); Potassium 4.2 mmol/L (3.4-5.1); Sodium 140 mmol/L (137-145)
[2025-03-04 08:00] VITALS: BP 186/93; PULSE 64; RESP 17; TEMP 36.9; O2SAT 94
--- NOTE | 2025-03-04 08:03 | PM.PN.1 ---
Subjective Subjective Interval history: Summary: She presented from [facility] with volume depletion and weakness. A urine had bacteria but not enough to meet criteria for culture. Blood cultures are negative. She was fluid resuscitated. S: Exam Vital Signs (past 8 hours): - 03/04/25 01:00 03/04/25 05:00 Temperature 97.1 F L 97.1 F L Pulse Rate 67 66 Respiratory Rate 16 17 Blood Pressure 167/93 H 186/93 H Pulse Oximetry 94 99 Oxygen Flow Rate 0 0 Oxygen Delivery Method Room Air Oxygen Flow Rate 0 Narrative Exam Narrative: NAD, alert and oriented. Fluent speech. Lungs are clear, normal rate and effort. Heart is regular, no murmur gallop or rub. Abdomen is soft, non distended. Extremities are free of edema. Objective Labs 03/03/25 06:15 03/04/25 06:30 Labs: Laboratory Results - last 24 hr 03/03/25 03/03/25 03/03/25 11:13 16:11 21:11 Sodium Potassium Chloride Carbon Dioxide BUN Creatinine Estimated GFR BUN/Creatinine Ratio Glucose POC Whole Bld Glucose 158 H 138 H 131 H Calcium 03/04/25 03/04/25 06:30 07:49 Sodium 140 Potassium 4.2 Chloride 108 H Carbon Dioxide 22 BUN 20 H Creatinine 0.84 Estimated GFR > 60 BUN/Creatinine Ratio 23.8 H Glucose 143 H POC Whole Bld Glucose 131 H Calcium 9.9 PFSH Medical History Hypothyroidism (acquired) Diabetes type 2 COPD (chronic obstructive pulmonary disease) Coronary artery disease Stroke Social History household members: none Smoking Status: Current some day smoker alcohol intake: never Assessment & Plan Assessment & Plan narrative: 1. Syncope found unresponsive. Improved. Likely relates to volume depletion. 2. MALLORY, Improved. Likely from dehydration. IV fluid monitor renal function. 3. Diabetes 2. Monitor glucose and will give subcu insulin as needed 4. Generalized weakness. PT OT. 5. Mild elevated lactic acid. 2.2. Resolved and normalized with IV fluid. No other sign of infection. 6. Hypothyroidism. Resume home Synthroid. 7. COPD. No sign of exacerbation. Resume home inhalers. PLAN: -Continue IVF. -PT, OT assessments. She was as a walker to ambulate at [facility]. DVT prophylaxis heparin subcu. Time-Based Coding :: [TOTAL MINUTES] spent with patient and on the chart (including review of chart, obtaining history, exam, reviewing outside data, placing orders, documenting exam and treatment plan, and counseling patient) on [DATE].
[2025-03-04] MEDS: CALCIUM CARBONATE 500 MG TAB 400 MG PO (08:30)
[2025-03-04] MEDS: METOPROLOL IR 50 MG TABLET PO (08:31)
[2025-03-04] MEDS: CLOPIDOGREL 75 MG TABLET PO (08:31)
[2025-03-04] MEDS: CHOLECALCIFEROL (VITAMIN D3) 1,000 UNIT TABLET 2000 UNIT PO (08:31)
[2025-03-04] MEDS: ASPIRIN EC 81 MG TABLET PO (08:31)
[2025-03-04] MEDS: HEPARIN 5,000 UNIT/ML VIAL 5000 UNIT SUBCUT (08:31)
[2025-03-04] MEDS: PANTOPRAZOLE DR 20 MG TABLET PO (08:31)
[2025-03-04] MEDS: GABAPENTIN 100 MG CAPSULE PO (08:31)
[2025-03-04] MEDS: SODIUM CHLORIDE 0.9% FLUSH 10 ML IV (08:32)
--- NOTE | 2025-03-04 10:34 | CM.DANOTE ---
Initial DCP Assessment Visit Note Reviewed EMR and team rounds for pt's medical status and updates. Met with pt at bedside to introduce self and role, pt was found to be alert/oriented, resting quietly in bed in no apparent distress. Pt resides at [facility], has a hx of [place] and strokes, uses a walker at baseline. She has been medically cleared for d/c back to [facility] today. They will transport her back later this afternoon once they have availability. Payor: Lilia Simms PCP: facility provider Pt is a 69 year-old F who presented to the ED via EMS after being found unresponsive outside on the ground. She was found to have low blood pressure, however it quickly imoproved with a bolus of fluids. She stated that she did not remember going outside, and had not been eating or drinking adequately for the last few days. Plan was made to admit her to [facility] for acute dehydration and MALLORY. She is much improved today. No CM d/c needs identified other than coordinating her transportation for discharge. Son, Edwar is her DPOA. Discharge Planning/Care Management CM Discharge Assessment Start: 03/02/25 22:15 Freq: Status: Active Protocol: Document 03/04/25 10:26 [facility] (Rec: 03/04/25 10:28 [facility] [id number]) Discharge Planning Assessment Assigned Discharge KHUSHI Hoffmann Party Host Advance Directives? No History Provided By Patient,Medical Record Has Patient been No admitted in last 30 days? Prior Living Assisted Living Arrangements Household Members none Type of Relies on Others transporation used prior to admit Facility Name [facility] Admitted From: Willing to Return to Yes Facility? Independent with ADL No: modified with a walker 's Is patient alert and Yes oriented? Needs Assistance Grooming,Meal Prep,Managing Medications,Home Chores / With Shopping Caregiver for No Another DME Already Rented / Bath Bench,Elevated Toilet Seat,FWW / Walker Owned Discharge Plan Assisted Living Facility Transportation Facility Arrangement Referrals Initiated None needed Whiteboard Updated Yes in Patient Room with name and ext. # of Plastics Engineer Review Status In Process Please Provide Date 03/04/25 Initial DC Assessment Was Performed
--- NOTE | 2025-03-04 11:05 | OT.IP.TRT ---
Occupational Therapy Treatment Note M2 OT-IP Current Condition Start: 03/03/25 15:31 Freq: Status: Active Protocol: Document 03/03/25 15:31 [facility] (Rec: 03/03/25 15:38 [facility] Desktop) Occupational Therapy Current Condition Current Condition Evaluation Date 03/03/25 Treatment Diagnosis Dehydration,syncope Diagnosis Onset Date 03/02/25 M3 OT- IP Subjective and Pain Start: 03/03/25 15:31 Freq: Status: Active Protocol: Document 03/04/25 10:53 [facility] (Rec: 03/04/25 11:04 [facility] Desktop) OT- Subjective Occupational Therapy Visit Type Type Treatment Note Visit Start Time 10:30 Visit Stop Time 10:53 Occupational Therapy Visit Comments Patient Comments Pt agreed to get up to try the 4ww and do grooming needs. Patient/Caregiver To go home. Goals OT Pain Assessment Pain When Pain Assessed During Mobility Pain Present Pain Present Pain Reported Location Right Shoulder Pain Behaviors Facial Grimacing M4 OT- IP ADL's Start: 03/03/25 15:31 Freq: Status: Active Protocol: Document 03/04/25 10:53 [facility] (Rec: 03/04/25 11:04 [facility] Desktop) OT ADL-Grooming General Evaluation Grooming Ability Independent Comments OT Grooming Comments Pt having to use her LUE to brush her hair. OT ADL-Oral Care General Eval Oral Care Ability Independent M5 OT- IP IADL's Start: 03/03/25 15:31 Freq: Status: Active Protocol: Document 03/03/25 15:31 [facility] (Rec: 03/03/25 15:38 [facility] Desktop) OT-Instrumental Activities of Daily Living Home Safety Awareness Awareness of Need Good Awareness for Assistance at Home Ability to Problem Able to Problem Solve Solve Emergency Situations Medication Management Medication Caregiver Administers Management Money Management Money Management Caregiver Provides Assistance Meal Preparation Meal Preparation Caregiver Provides Assist Cullet Washer Cullet Washer Caregiver Provides Assist M6 OT- IP Functional Cognition Start: 03/03/25 15:31 Freq: Status: Active Protocol: Document 03/04/25 10:53 [facility] (Rec: 03/04/25 11:04 [facility] Desktop) Cognitive Factors Limiting Selfcare Function Cognitive Comments Cognitive Assessment Pt intact. Pt willing and requesting to have home Comments health PT/OT. Pt wanting to work on walking without a device. Pt having good awareness to call for assist and not get upon her own at this time. M7 OT- IP Mobility and Balance Start: 03/03/25 15:31 Freq: Status: Active Protocol: Document 03/04/25 10:53 [facility] (Rec: 03/04/25 11:04 [facility] Desktop) OT-Transfer Assessment Sit to and From Stand Sit to and from Standby Assistance Stand Transfers Transfer Ability Standby Assistance,Contact Guard Assistance Technique Transfer Destination Chair Transfer Technique Stand Step Pivot Devices Transfer Assistive None,Gait Belt,Front Wheeled Walker Devices Comments Mobility Comments Pt SBA with 4ww and able to sit the 4ww with good safety. Pt needing CGA without a device and unsteady on her feet. OT- Balance Assessment Sitting Balance and Reactions Static Sitting Normal Balance Ability Dynamic Sitting Good Balance Ability Standing Balance and Reactions Static Standing Good Balance Ability Dynamic Standing Fair Balance Ability Comments Other Balance Tests/ Without a device, pt has poor dynamic balance. Deviations/Treatment : M8 OT- IP Objective Assessments Start: 03/03/25 15:31 Freq: Status: Active Protocol: Document 03/03/25 15:31 [facility] (Rec: 03/03/25 15:38 [facility] Desktop) OT Gross Range of Motion Upper Extremity Range of Motion Assessment Right Impaired OT Strength Upper Extremity Strength Assessment Right Impaired Comments Strength Comments Pt has chronic right shoulder issues and not able to actively raise her arm up. OT- Coordination Assessment Upper Extremity Finger to Nose Test Within Functional Limits M9 OT- IP Assessment and Plan Start: 03/03/25 15:31 Freq: Status: Active Protocol: Document 03/04/25 10:53 [facility] (Rec: 03/04/25 11:04 [facility] Desktop) OT Summary Assessment and Plan Potential Rehabilitation Excellent Potential Analytic Complexity Low at Evaluation Summary OT Impairments Balance,Functional Mobility,Grooming,Dressing,Toileting ,Bathing,Toilet Transfers,Shower Transfers,Activity Tolerance Progress Towards Progressing Toward Goals Goals Assessment Summary Pt moving much better today and able to do self care needs at the sink and walk with 4ww and without. Pt unsteady on her feet without a device and would benefit from home health therapies OT/PT. OT to work on her RUE weakness and AROM. Goals Self-Feeding Goal Independent Grooming Goal Independent Dressing Goal Independent Toileting Goal Independent Bathing Goal Independent Toilet Transfer Goal Independent Shower Transfer Goal Independent Days to Meet Goals 4 Treatment Plan OT Treatment Plan ADL Training,Functional Mobility,Patient/Family Education,Discharge Planning Discharge Recommendations OT Discharge Home with 18/03 Assist Available,Home Health Recommendations Transportation Needs Private Vehicle,Wheelchair/Cabulance at Discharge
--- NOTE | 2025-03-04 11:20 | P.DS_ITS ---
History of Present Illness History of Present Illness Chief complaint: AMS Narrative: From H&P: 69-year-old female with past medical history of CVA, ID, hypothyroidism, COPD not oxygen dependent, diabetes and hypertension presents with unresponsive. Of note the patient lives at [facility] and was found today at her care facility unresponsive outside. There is no report of any trauma and on arrival by EMS blood pressure was noted to be 99/57 and glucose of 154. The patient now reports that she did have some nausea and vomiting last night but denies any GI bleeding. The patient is was given IV fluid bolus with improvement in her systolic blood pressure in the 110s. The patient noted to have chronic right shoulder pain but denies any new pain. Patient otherwise was still somewhat confused and unable to give a reliable history. In the emergency room, the patient was hemodynamically stable now. Labs shows a WBC of 13 creatinine 1.67 glucose 178 troponin negative less than 0.012 lactate slightly high at 2.2. Of note IV fluid was given and lactate normalized. 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 UA was also negative for any sign of UTI. Discharge Providers Provider Date of admission: 03/02/25 19:01 Discharge Date: 03/04/25 Consults: 03/02/25 20:31 Consult to Occupational Therapy Evaluate & Treat Comment: Physician Instructions: Evaluate and treat Consult to Physical Therapy Evaluate & Treat Comment: Physician Instructions: Evaluate and Treat 03/04/25 11:16 Consult to Home Health Routine Comment: PT, OT Reason For Exam: Home Health Services Discharge provider: Shahbaz Og MD Summary Hospital Course Discharge Diagnosis: 1. Syncope found unresponsive. Improved. Likely relates to volume depletion. Resolved. 2. MALLORY, Improved. Likely from dehydration. Improved with IVF. 3. Diabetes 2. Stable. 4. Generalized weakness. Improved. 5. Mild elevated lactic acid. 2.2. Resolved and normalized with IV fluid. 6. Hypothyroidism. Stable on Synthroid. 7. COPD. Stable. Resume home inhalers. Hospital Course: She was admitted with what appeared to be volume depletion. She was fluid resuscitated and her symptoms improved as did her renal function. She had a mild lactic acidosis which also normalized. She was back to baseline and evaluated by therapy and felt to be appropriate for home health at her assisted living. The patient felt that she was much improved. The workup was negative for evidence of infection. She was agreeable to discharge back to her facility and home health services. [N], the patient has documentation of a left ventricle ejection fracture less than or equal to 40%, or moderately or severely reduced left ventricle systolic function. [N], the patient has a history of heart transplant or left ventricular assist device (LVAD). [N], the patient was prescribed an CECILIO inhibitor at discharge or is already being taken. [N], the patient was prescribed Metoprolol succinate, bisoprolol, or carvedilol at discharge. Status at Discharge Cognitive/behavioral status at discharge: oriented Functional status at discharge: uses cane/walker Overall status at discharge: patient is progressing back to baseline Time Spent with Patient Time spent: Greater than 30 minutes Exam Vital Signs (past 8 hours): - 03/04/25 05:00 03/04/25 08:00 Temperature 97.1 F L 98.4 F Pulse Rate 66 64 Respiratory Rate 17 17 Blood Pressure 186/93 H 186/93 H Pulse Oximetry 99 94 Oxygen Flow Rate 0 0 Oxygen Delivery Method Room Air Oxygen Flow Rate 0 Narrative Exam Narrative: NAD, alert and oriented. Fluent speech. Lungs are clear, normal rate and effort. Heart is regular, no murmur gallop or rub. Abdomen is soft, non distended. Extremities are free of edema. Objective ECG Impression: Intervals [place] Rate: 57 P: 35 [place]: 184 QRS: -6 QRSD: 84 T: -10 QT: 458 QTc: 445 Interpretive Statements Sinus bradycardia Minimal voltage criteria for LVH, may be normal variant ( R in aVL ) Imaging Chest x-ray: Radiologist's impression: 1. No acute cardiopulmonary abnormality is seen. 2. Dislocation of the right glenohumeral joint is suspected to be chronic although correlation is recommended. CT scan - head: Radiologist's impression: No acute intracranial pathology. Labs 03/03/25 06:15 03/04/25 06:30 Labs: Laboratory Results - last 24 hr 03/03/25 03/03/25 03/04/25 16:11 21:11 06:30 Sodium 140 Potassium 4.2 Chloride 108 H Carbon Dioxide 22 BUN 20 H Creatinine 0.84 Estimated GFR > 60 BUN/Creatinine Ratio 23.8 H Glucose 143 H POC Whole Bld Glucose 138 H 131 H Calcium 9.9 03/04/25 07:49 Sodium Potassium Chloride Carbon Dioxide BUN Creatinine Estimated GFR BUN/Creatinine Ratio Glucose POC Whole Bld Glucose 131 H Calcium PFSH Medical History Hypothyroidism (acquired) Diabetes type 2 COPD (chronic obstructive pulmonary disease) Coronary artery disease Stroke Social History household members: none Smoking Status: Current some day smoker alcohol intake: never Discharge Assessment & Plan Assessment and Plan Assessment: 1. Syncope found unresponsive. Improved. Likely relates to volume depletion. Resolved. 2. MALLORY, Improved. Likely from dehydration. Improved with IVF. 3. Diabetes 2. Stable. 4. Generalized weakness. Improved. 5. Mild elevated lactic acid. 2.2. Resolved and normalized with IV fluid. 6. Hypothyroidism. Stable on Synthroid. 7. COPD. Stable. Resume home inhalers. Plan of Treatment: Stable for discharge. No med changes. Discharge Plan Discharge Plan Patient Disposition: Assisted Living Transfer to: [facility] Transportation: Facility vehicle Provider Discharge Comment: Stable for discharge back to her assisted living facility. Discharge orders & Medications Discharge Orders: Discharge (Order); Ordered 03/04/25 Ordered By: Shahbaz Og Prescriptions: Continued gabapentin 100 mg capsule 100 mg PO TID metoprolol tartrate 50 mg tablet 50 mg PO DAILY aspirin [Adult Low Dose Aspirin] 81 mg tablet,delayed release (DR/EC) 81 mg PO DAILY lisinopril 40 mg tablet 40 mg PO DAILY levothyroxine 88 mcg capsule 88 mcg PO DAILY pantoprazole 20 mg tablet,delayed release (DR/EC) 20 mg PO BID glipizide 5 mg tablet 5 mg PO DAILY clopidogrel 75 mg tablet 75 mg PO DAILY cholecalciferol (vitamin D3) 50 mcg (2,000 unit) capsule 2,000 unit PO DAILY buspirone 5 mg tablet 5 mg PO BID acetaminophen [8 Hour Pain Reliever] 650 mg tablet extended release 650 mg PO Q12H PRN (Reason: pain) mirtazapine [Remeron] 30 mg tablet 30 mg PO BEDTIME atorvastatin 80 mg tablet 80 mg PO BEDTIME calcium carbonate 200 mg calcium (500 mg) tablet,chewable 400 mg PO QID Medication counseling provided by Pharmacist: No Discharge Health Status Multidrug resistant organism: No MDRO Diet/Activity/Treatments Diet: Carb-consistent/Diabetic Liquid consistency: Normal/Thin Food texture: Regular Activity: As tolerated. Home health ordered. [facility] Rehab type: Physical therapy Visit Report/Discharge Packet Instructions: DI for Dehydration -- Adult Stand Alone Forms: Patient Portal/API Discharge Data Attending Provider: Sarah Beth Greenfield Admit Date/Time: 03/02/25 19:01
== END 2025-03-04 12:48 ==
LOC: ED 17:07 → AC 19:01
PROVIDERS: Hospitalist; Internal Medicine; Admitting Provider Family Medicine; Emergency Provider Emergency Medicine; Referring Provider Emergency Medicine; Visit Provider Family Medicine
DX: R40.4 Transient alteration of awareness (principal); Z86.73 Personal history of transient ischemic attack (TIA), and cerebral infarction without residual deficits; I25.2 Old myocardial infarction; Z87.891 Personal history of nicotine dependence; E86.0 Dehydration; E03.9 Hypothyroidism, unspecified; J44.9 Chronic obstructive pulmonary disease, unspecified; E11.9 Type 2 diabetes mellitus without complications; I10 Essential (primary) hypertension; R53.1 Weakness; Z66 Do not resuscitate
CPT/HCPCS: 36415; 70450; 71045; 80048; 80053; 81001; 82962; 83605; 83690; 83735; 84484; 85025; 87040; 93005; 93010; 96360; 96361; 96372; 97161; 97165; 97530; 97535; 99284; G0378; J1644

== ENCOUNTER 2025-05-02 15:15 | Emergency (ER) | payer MEDICARE, MEDICAID, SELFPAY ==
[2025-04-18 21:45] VITALS: BMI 26.5
[2025-05-02] VITALS (15 sets, daily range): BP systolic 162–224; BP diastolic 77–117; PULSE 68–79; RESP 16–25; TEMP 36.6; O2SAT 91–96; BMI 25.8
--- NOTE | 2025-05-02 15:24 | DI.RAD.S_ITS ---
PROCEDURE: XR CHEST 1V INDICATIONS: Chest Pain TECHNIQUE: One view of the chest was acquired. COMPARISON: [facility], CR, XR CHEST 1V, 03/02/2025, 15:56. [facility], CR, XR CHEST 1V, 04/18/2025, 14:13. FINDINGS: Surgical changes and devices: Cervical spine fixation hardware is partially seen. Lungs and pleura: Lungs are clear. No pleural effusions or pneumothorax. Mediastinum: The cardiac contours are within normal limits. The aorta demonstrates calcification and tortuosity. Bones and chest wall: There is advanced degenerative change of the right shoulder. Milder degenerative changes are seen elsewhere. No suspicious bony lesions. Overlying soft tissues appear unremarkable. IMPRESSION: No acute cardiopulmonary abnormality is seen. Postoperative and degenerative changes are seen. Dictated by: Ciaran Longo M.D. on 05/02/2025 at 14:47 Approved by: Ciaran Longo M.D. on 05/02/2025 at 14:48
--- NOTE | 2025-05-02 15:25 | EKG_ITS ---
[address] [address] Test Date: 2025-05-02 Pat Name: Agueda Barraza Department: Room: Gender: Female Manager Functional: ANNA : 1955 Requested By: Order Number: [id number] Reading MD: Shahbaz Og Measurements Intervals [place] Rate: 77 P: 39 [place]: 176 QRS: -25 QRSD: 86 T: -4 QT: 418 QTc: 473 Interpretive Statements Normal sinus rhythm Moderate voltage criteria for LVH, may be normal variant ( R in aVL , Brijesh product ) Electronically Signed On 05-03-2025 13:51:33 PDT by Shahbaz Og
[2025-05-02 15:46] LABS: INR 1.0 (0.9-1.3); Prothrombin Time 11.0 SECONDS (9.4-12.5)
[2025-05-02 15:49] LABS: PTT Partial Thromboplastin Tim 29 SECONDS (25.1-36.5)
[2025-05-02 15:51] LABS: Add Manual Diff / Slide Review NO; Alanine Aminotransferase 33 IU/L (<35); Albumin 4.6 g/dL (3.5-5.0); Albumin Globulin Ratio 1.1 (1.0-2.8); Alkaline Phosphatase 172 U/L (38-126); Blood Urea Nitrogen 23 mg/dL (7-17); Calcium 10.5 mg/dL (8.4-10.2); Carbon Dioxide 21 mmol/L (22-32); Chloride 102 mmol/L (98-107); Creatine Kinase 42 U/L (30-135); Estimated Glomerular Filt Rate > 60 mL/min (>60); Globulin 4.1 g/dL (1.7-4.1); Glucose 227 mg/dL (70-99); HEMOLYSIS < 15 (0-50); Hematocrit 41.8 % (36-46); Hemoglobin 14.4 g/dL (12.0-16.0); Lipase 227 U/L (23-300); Lymphocytes Absolute Auto 2500 /uL (1100-4500); Magnesium 1.5 mg/dL (1.6-2.3); Mean Corpuscular HGB Conc 34.5 % (30-36); Mean Corpuscular Hemoglobin 30.3 PG (26-34); Mean Corpuscular Volume 87.7 fL (80-100); Platelet Count 202 X10^3/uL (150-400); Potassium 4.0 mmol/L (3.4-5.1); Sodium 137 mmol/L (137-145); Total Protein 8.7 g/dL (6.3-8.2)
[2025-05-02 16:02] LABS: NT-proBNP (BNP-Adult 18+) 309 pg/mL (<125); Troponin I < 0.012 ng/mL (0.01-0.034)
[2025-05-02] MEDS: LABETALOL 20 MG/4 ML SYRINGE 10 MG IV (17:33)
--- NOTE | 2025-05-02 18:59 | ED.GENADULT ---
HPI - General Adult General Chief complaint: Hypertension Stated complaint: HTN Time Seen by Provider: 05/02/25 18:59 Source: EMS Mode of arrival: EMS History of Present Illness HPI narrative: Patient is a 69-year-old female with a past medical history of hyperlipidemia, hypothyroidism, hypertension, comes into the ED from [facility], coming in for evaluation of high blood pressure, states that he was recently seen here discharge and was told to stop taking lisinopril, she denies any other symptoms at this time just coming in due to elevated blood pressure. Related Data Home Medications ?Medication ?Instructions ?Recorded ?Confirmed acetaminophen 650 mg 650 mg PO Q12H PRN pain 03/03/25 03/03/25 tablet,extended release (8 Hour Pain Reliever) aspirin 81 mg tablet,delayed 81 mg PO DAILY 03/03/25 03/03/25 release (Adult Low Dose Aspirin) atorvastatin 80 mg tablet 80 mg PO BEDTIME 03/03/25 03/03/25 buspirone 5 mg tablet 5 mg PO BID 03/03/25 03/03/25 calcium carbonate 400 mg PO QID heartburn 03/03/25 03/03/25 cholecalciferol (vitamin D3) 50 2,000 unit PO DAILY 03/03/25 03/03/25 mcg (2,000 unit) capsule clopidogrel 75 mg tablet 75 mg PO DAILY 03/03/25 03/03/25 gabapentin 100 mg capsule 100 mg PO TID nerve pain 03/03/25 03/03/25 levothyroxine 88 mcg capsule 88 mcg PO DAILY 03/03/25 03/03/25 metoprolol tartrate 50 mg tablet 50 mg PO DAILY 03/03/25 03/03/25 mirtazapine 30 mg tablet (Remeron) 30 mg PO BEDTIME 03/03/25 03/03/25 pantoprazole 20 mg tablet,delayed 20 mg PO BID 03/03/25 03/03/25 release Previous Rx's ?Medication ?Instructions ?Recorded sitagliptin phosphate 25 mg tablet 25 mg PO DAILY #30 tabs 04/19/25 (Januvia) Allergies Allergy/AdvReac Type Severity Reaction Status Date / Time No Known Drug Allergies Allergy Verified 05/02/25 15:24 Review of Systems Review of Systems Narrative: General: Denies fever, chills, weight loss HEENT: Denies headache, eye drainage, eye irritation, head trauma, sore throat, voice change Cardiovascular: Positive hypertension, Denies any chest pain, palpitations, tachycardia Respiratory: Denies any shortness of breath, cough, wheeze, stridor GI/: Denies any abdominal pain, nausea, vomiting, diarrhea, bright red blood per rectum, melanotic stools, urinary frequency, urinary retention, dysuria, hematuria MSK: Denies any joint pain, muscle pains, swelling Skin: Denies any rashes, lesions, discoloration Neuro: Denies any headache, lightheadedness, dizziness, fainting, weakness Psych: Denies SI/HI Patient History Medical History Hypothyroidism (acquired) Diabetes type 2 COPD (chronic obstructive pulmonary disease) Coronary artery disease Stroke Social History household members: none alcohol intake: never Exam Narrative Exam Narrative: General: Cooperative, well-developed, not in acute distress HEENT: Normocephalic, atraumatic, PERRLA, normal sclera, eyelids normal Neck: Active full range of motion, atraumatic Chest: Normal to inspection, negative crepitus, no overlying erythema ecchymosis Respiratory: Normal respiratory effort, not in acute respiratory distress, clear to auscultation bilaterally negative cough, wheeze, tachypnea, rhonchi, rales Cardiology: Regular rate rhythm negative gallop, murmur, rubs GI/: No tenderness to palpation, soft, non rigid, normal to inspection, exam deferred MSK: Full active range of motion in all 4 extremities, atraumatic, no tenderness to palpation of any bony prominences Skin: No rashes or lesions noted Neuro: Alert awake oriented x3, moves all 4 extremities spontaneously, cranial nerves intact, able to answer all questions appropriately follows commands appropriately Psych: Cooperative, negative suicidal or homicidal ideations Initial Vital Signs Initial Vital Signs: Vital Signs Temperature 98 F 05/02/25 15:21 Pulse Rate 78 05/02/25 15:21 Respiratory Rate 16 05/02/25 15:21 Blood Pressure 220/110 H 05/02/25 15:21 Pulse Oximetry 95 05/02/25 15:21 Oxygen Delivery Method Room Air 05/02/25 15:21 Course Orders Ordered: ED Orders 05/02/25 15:24 XR chest 1V Stat EKG-12 Lead Stat 05/02/25 15:32 Complete Blood Count AUTO DIFF Stat Comprehensive Metabolic Panel Stat Lipase Stat Magnesium Stat NT-proBNP (BNP-Adult 18+) Stat PTT Partial Thromboplastin Jose Stat Prothrombin Time INR Stat Troponin & CK Cardiac Panel Stat Discontinued Medications Labetalol HCl (Labetalol 20 Mg/4 Ml Syringe) 10 mg IV NOW ONE Stop: 05/02/25 17:19 Last Admin: 05/02/25 17:33 Dose: 10 mg Documented By: ANGY Lisinopril (Lisinopril 20 Mg Tablet) 40 mg PO NOW ONE Stop: 05/02/25 17:19 Last Admin: 05/02/25 17:33 Dose: 40 mg Documented By: ANGY Vital Signs Vital signs: Vital Signs - 8 hr 05/02/25 15:21 05/02/25 15:49 05/02/25 16:00 Temperature 98 F Pulse Rate 78 75 73 Respiratory Rate 16 22 24 Blood Pressure 220/110 H 224/117 H 187/91 H Pulse Oximetry 95 96 94 Oxygen Delivery Method Room Air Room Air Room Air Oxygen Flow Rate 05/02/25 16:30 05/02/25 16:32 05/02/25 16:32 Temperature Pulse Rate 68 69 Respiratory Rate 23 Blood Pressure 218/94 H Pulse Oximetry 91 95 Oxygen Delivery Method Oxygen Flow Rate 05/02/25 17:00 05/02/25 17:01 05/02/25 17:01 Temperature Pulse Rate 71 70 Respiratory Rate 22 19 Blood Pressure 204/93 H Pulse Oximetry 93 94 Oxygen Delivery Method Oxygen Flow Rate 05/02/25 17:30 05/02/25 17:30 05/02/25 17:33 Temperature Pulse Rate 70 72 Respiratory Rate 18 Blood Pressure 218/96 H 218/96 H Pulse Oximetry 95 Oxygen Delivery Method Oxygen Flow Rate 05/02/25 17:33 05/02/25 18:00 05/02/25 18:01 Temperature Pulse Rate 72 79 Respiratory Rate 18 Blood Pressure 218/96 H 189/92 H Pulse Oximetry 93 Oxygen Delivery Method Oxygen Flow Rate 05/02/25 18:01 05/02/25 18:03 05/02/25 18:30 Temperature Pulse Rate 79 79 Respiratory Rate 16 Blood Pressure 189/82 H 195/91 H Pulse Oximetry 95 Oxygen Delivery Method Oxygen Flow Rate 05/02/25 18:30 Temperature Pulse Rate 77 Respiratory Rate 25 H Blood Pressure Pulse Oximetry 93 Oxygen Delivery Method Nasal Cannula Oxygen Flow Rate 1 Medical Decision Making Lab Data 05/02/25 15:32 05/02/25 15:32 Labs: Lab Results 05/02/25 Range/Units 15:32 WBC 9.1 (4.5-11.0) X10^3/uL RBC 4.76 (4.0-5.2) X10^6/uL Hgb 14.4 (12.0-16.0) g/dL Hct 41.8 (36-46) % MCV 87.7 (80-100) fL MCH 30.3 (26-34) PG MCHC 34.5 (30-36) % RDW 15.1 H (11.6-14.8) % Plt Count 202 (150-400) X10^3/uL Neut % (Auto) 56.0 (50-75) % Lymph % (Auto) 28.0 (25-40) % [place] % (Auto) 7.3 (3-14) % Eos % (Auto) 8.3 H (2-4) % Baso % (Auto) 0.4 (0-2) % Neut # (Auto) 5100 (9447-8879) /uL Lymph # (Auto) 2500 (0427-3197) /uL [place] # (Auto) 700 (0-900) /uL Eos # (Auto) 800 H (0-450) /uL Baso # (Auto) 0 (0-100) /uL PT 11.0 (9.4-12.5) SECONDS INR 1.0 (0.9-1.3) APTT 29 (25.1-36.5) SECONDS Sodium 137 (137-145) mmol/L Potassium 4.0 (3.4-5.1) mmol/L Chloride 102 (98-107) mmol/L Carbon Dioxide 21 L (22-32) mmol/L BUN 23 H (7-17) mg/dL Creatinine 0.84 (0.52-1.04) mg/dL Estimated GFR > 60 (>60) mL/min BUN/Creatinine Ratio 27.4 H (6-22) Glucose 227 H (70-99) mg/dL Calcium 10.5 H (8.4-10.2) mg/dL Magnesium 1.5 L (1.6-2.3) mg/dL Total Bilirubin 0.6 (0.2-1.3) mg/dL AST 34 (14-36) IU/L ALT 33 (<35) IU/L Alkaline Phosphatase 172 H (38-126) U/L Total Creatine Kinase 42 (30-135) U/L Troponin I < 0.012 (0.01-0.034) ng/mL NT-Pro-B Natriuret Pep 309 H (<125) pg/mL Total Protein 8.7 H (6.3-8.2) g/dL Albumin 4.6 (3.5-5.0) g/dL Globulin 4.1 (1.7-4.1) g/dL Albumin/Globulin Ratio 1.1 (1.0-2.8) Lipase 227 (23-300) U/L ECG Data Interpretation: EKG interpreted ED physician sinus 77 beats per minute QTC 473, left axis deviation, QRS MT interval within normal limits, no STEMI MDM Narrative Medical decision making narrative: Patient is a 69-year-old female with a past medical history of hyperlipidemia, hypertension, hypothyroidism, comes into the ED from home for evaluation of elevated blood pressure, she states that she was seen here admitted and discharged recently over the past 2 weeks, however she states that she was stopped on her lisinopril she states that she is not sure why, she states that she is presenting due to elevated blood pressure. Review of records show that patient was admitted for MALLORY dehydration and hypotension, which is most likely the reason why they took her off of her antihypertensive [place]. However at time of evaluation patient is not complaining of any chest pain shortness breath headache dizziness or any other symptoms at this time. Patient was given 10 mg of IV labetalol and restarted on her 50 mg of lisinopril, patient improving blood pressure. She was instructed to follow up with the primary care doctor and to restart her lisinopril given she is no longer hypertensive and lab work now showing normal creatinine. She was given strict return precautions verbalized understanding of this and agrees to being discharged home with outpatient follow up Discharge Plan Departure Patient Disposition: Home Clinical Impression: Hypertension Instructions: DI for High Blood Pressure Activity Restrictions/Additional Instructions: Please follow up with the primary care doctor, you may continue taking your lisinopril to control the blood pressure Please read the discharge instructions sheet carefully and bring all papers to all doctor follow-up visits, as it may contain information that your doctor may want to see. Disease processes change and evolve, if your symptoms worsen or if you develop any new symptoms that are concerning to you please return for evaluation. Your evaluation today does not show any evidence of any life-threatening/serious illnesses requiring admission to the hospital or surgery. Please follow-up with your doctor for re-evaluation in approximately 1 day. Seek immediate medical attention for any worrisome symptoms. *If you do not have a primary care provider please contact the [facility] Resource line at [phone]. They will ask some questions about your medical history and help get you set up with a doctor in the community. Prescriptions: No Action gabapentin 100 mg capsule 100 mg PO TID metoprolol tartrate 50 mg tablet 50 mg PO DAILY aspirin [Adult Low Dose Aspirin] 81 mg tablet,delayed release (DR/EC) 81 mg PO DAILY levothyroxine 88 mcg capsule 88 mcg PO DAILY pantoprazole 20 mg tablet,delayed release (DR/EC) 20 mg PO BID clopidogrel 75 mg tablet 75 mg PO DAILY cholecalciferol (vitamin D3) 50 mcg (2,000 unit) capsule 2,000 unit PO DAILY buspirone 5 mg tablet 5 mg PO BID acetaminophen [8 Hour Pain Reliever] 650 mg tablet extended release 650 mg PO Q12H PRN (Reason: pain) mirtazapine [Remeron] 30 mg tablet 30 mg PO BEDTIME atorvastatin 80 mg tablet 80 mg PO BEDTIME calcium carbonate 200 mg calcium (500 mg) tablet,chewable 400 mg PO QID Januvia 25 mg tablet 25 mg PO DAILY Qty: 30 0RF Stand Alone Forms: Patient Portal/API
--- NOTE | 2025-05-02 19:24 | PC.NURSE ---
Spoke with west, staff at [facility]. Spoke with Briana JUAREZ at [facility] for patient as well. Discussed ED plan of care, as well as, discharge plan to continue lisinopril at d/c. BLS eta 1950. Attempted to call son, Edwar, x2 with no answer
== END 2025-05-02 20:10 | disposition home or self-care (01) ==
PROVIDERS: Emergency Medicine; Emergency Provider Student in an Organized Health Care Education/Training Program
DX: I10 Essential (primary) hypertension (principal)
CPT/HCPCS: 36415; 71045; 80053; 82550; 83690; 83735; 83880; 84484; 85025; 85610; 85730; 93005; 96374; 99284; 99285

== ENCOUNTER → 2025-06-02 09:20 | Outpatient (ROUT) | payer MEDICARE, MEDICAID, SELFPAY ==
[2025-04-18 21:45] VITALS: BMI 26.5
[2025-06-03 09:38] LABS: Hemoglobin A1C% w Est Avg Glu 10.9 % (4.0-6.0)
[2025-06-03 09:48] LABS: Blood Urea Nitrogen 25 mg/dL (7-17); Calcium 9.6 mg/dL (8.4-10.2); Carbon Dioxide 20 mmol/L (22-32); Chloride 107 mmol/L (98-107); Estimated Glomerular Filt Rate 53 mL/min (>60); Glucose 162 mg/dL (70-99); HEMOLYSIS < 15 (0-50); Potassium 4.5 mmol/L (3.4-5.1); Sodium 138 mmol/L (137-145)
== END ==
PROVIDERS: Visit Provider Registered Nurse
DX: E11.9 Type 2 diabetes mellitus without complications (principal)
CPT/HCPCS: 36415; 80048; 83036

== ENCOUNTER → 2025-07-28 07:51 | Outpatient (ROUT) | payer MEDICARE, MEDICAID, SELFPAY ==
[2025-04-18 21:45] VITALS: BMI 26.5
[2025-07-28 08:12] LABS: Add Manual Diff / Slide Review NO; Hematocrit 36.5 % (36-46); Hemoglobin 12.2 g/dL (12.0-16.0); Lymphocytes Absolute Auto 2500 /uL (1100-4500); Mean Corpuscular HGB Conc 33.5 % (30-36); Mean Corpuscular Hemoglobin 29.1 PG (26-34); Mean Corpuscular Volume 86.7 fL (80-100); Platelet Count 201 X10^3/uL (150-400)
[2025-07-28 08:15] LABS: Alanine Aminotransferase 48 IU/L (<35); Albumin 4.1 g/dL (3.5-5.0); Albumin Globulin Ratio 1.2 (1.0-2.8); Alkaline Phosphatase 137 U/L (38-126); Blood Urea Nitrogen 20 mg/dL (7-17); Calcium 9.4 mg/dL (8.4-10.2); Carbon Dioxide 21 mmol/L (22-32); Chloride 109 mmol/L (98-107); Estimated Glomerular Filt Rate > 60 mL/min (>60); Globulin 3.3 g/dL (1.7-4.1); Glucose 138 mg/dL (70-99); HEMOLYSIS 21 (0-50); Potassium 4.3 mmol/L (3.4-5.1); Sodium 139 mmol/L (137-145); Total Protein 7.4 g/dL (6.3-8.2)
== END ==
DX: E11.9 Type 2 diabetes mellitus without complications (principal)
CPT/HCPCS: 36415; 80053; 85025

== ENCOUNTER → 2025-08-04 06:12 | Outpatient (ROUT) | payer MEDICARE, MEDICAID, SELFPAY ==
[2025-04-18 21:45] VITALS: BMI 26.5
[2025-08-04 07:51] LABS: Add Manual Diff / Slide Review NO; Hematocrit 37.1 % (36-46); Hemoglobin 12.2 g/dL (12.0-16.0); Lymphocytes Absolute Auto 2200 /uL (1100-4500); Mean Corpuscular HGB Conc 32.9 % (30-36); Mean Corpuscular Hemoglobin 28.8 PG (26-34); Mean Corpuscular Volume 87.5 fL (80-100); Platelet Count 188 X10^3/uL (150-400)
[2025-08-04 08:26] LABS: Alanine Aminotransferase 40 IU/L (<35); Albumin 4.0 g/dL (3.5-5.0); Albumin Globulin Ratio 1.4 (1.0-2.8); Alkaline Phosphatase 118 U/L (38-126); Blood Urea Nitrogen 20 mg/dL (7-17); Calcium 9.6 mg/dL (8.4-10.2); Carbon Dioxide 18 mmol/L (22-32); Chloride 111 mmol/L (98-107); Estimated Glomerular Filt Rate > 60 mL/min (>60); Globulin 2.9 g/dL (1.7-4.1); Glucose 169 mg/dL (70-99); HEMOLYSIS < 15 (0-50); Potassium 4.1 mmol/L (3.4-5.1); Sodium 141 mmol/L (137-145); Total Protein 6.9 g/dL (6.3-8.2)
[2025-08-04 08:56] LABS: Thyroid Stimulating Hormone 0.105 uIU/mL (0.47-4.68)
== END ==
PROVIDERS: Hospitalist
DX: E03.9 Hypothyroidism, unspecified (principal)
CPT/HCPCS: 36415; 80053; 84443; 85025

== ENCOUNTER → 2025-08-11 10:00 | Outpatient (ROUT) | payer MEDICARE, MEDICAID, SELFPAY ==
[2025-04-18 21:45] VITALS: BMI 26.5
[2025-08-11 10:16] LABS: Hematocrit 36.9 % (36-46); Hemoglobin 12.2 g/dL (12.0-16.0); Mean Corpuscular HGB Conc 33.1 % (30-36); Mean Corpuscular Hemoglobin 28.8 PG (26-34); Mean Corpuscular Volume 87.1 fL (80-100); Platelet Count 190 X10^3/uL (150-400)
[2025-08-11 10:32] LABS: Alanine Aminotransferase 36 IU/L (<35); Albumin 4.1 g/dL (3.5-5.0); Albumin Globulin Ratio 1.4 (1.0-2.8); Alkaline Phosphatase 118 U/L (38-126); Blood Urea Nitrogen 16 mg/dL (7-17); Calcium 9.7 mg/dL (8.4-10.2); Carbon Dioxide 21 mmol/L (22-32); Chloride 109 mmol/L (98-107); Estimated Glomerular Filt Rate > 60 mL/min (>60); Globulin 2.9 g/dL (1.7-4.1); Glucose 125 mg/dL (70-99); HEMOLYSIS < 15 (0-50); Potassium 4.6 mmol/L (3.4-5.1); Sodium 141 mmol/L (137-145); Total Protein 7.0 g/dL (6.3-8.2)
[2025-08-11 11:04] LABS: Thyroid Stimulating Hormone 0.114 uIU/mL (0.47-4.68)
== END ==
LOC: LAB 10:01
PROVIDERS: Visit Provider Hospitalist
DX: E05.90 Thyrotoxicosis, unspecified without thyrotoxic crisis or storm (principal)
CPT/HCPCS: 36415; 80053; 84443; 85027

== ENCOUNTER 2025-08-14 20:35 | Observation (INO) | payer MEDICARE, MEDICAID, SELFPAY ==
[2025-04-18 21:45] VITALS: BMI 26.5
[2025-08-14] VITALS (12 sets, daily range): BP systolic 86–137; BP diastolic 47–61; PULSE 57–66; RESP 18–21; TEMP 37; O2SAT 86–95; BMI 24.7
--- NOTE | 2025-08-14 | DI.MRI.S_ITS ---
PROCEDURE: MR HEAD/BRAIN WO CON INDICATIONS: Please evaluate for stroke. TECHNIQUE: Non-contrast axial T1 spin echo, axial T2 fast spin echo, sagittal and axial FLAIR, coronal T2 fast spin echo, axial gradient echo, axial diffusion and ADC through the brain. COMPARISON: [facility], CT, CT HEAD/BRAIN WO CON, 08/14/2025, 21:16. [facility], CT, CT ANGIO HEAD AND NECK, 08/14/2025, 21:34. FINDINGS: Image quality: Excellent. CSF spaces: Ventricles appear symmetric in size and shape. Basal cisterns are patent. No extra-axial fluid collections. Brain: No intracranial bleeds or mass effects. There is cerebral volume loss for age. There are periventricular and deep white matter chronic small vessel ischemic changes. Brainstem appears normal. Diffusion-weighted images show no acute infarct. No chronic ischemic insults. Normal intravascular flow voids are present. Symmetric calcification can be seen involving the basal ganglia, which is considered to be normal for age. Skull and face: Calvarial bone marrow is normal in signal. Orbits are normal. Note is made of bilateral lens replacements. Sinuses: Sinuses and mastoids are clear. IMPRESSION: No findings of acute or subacute infarction can be seen. Dictated by: Ciaran Longo M.D. on 08/15/2025 at 8:07 Approved by: Ciaran Longo M.D. on 08/15/2025 at 8:08
--- NOTE | 2025-08-14 20:50 | EKG_ITS ---
[address] [address] Test Date: 2025-08-14 Pat Name: Agueda Barraza Department: Room: Gender: Female Domestic Violence Counselor: RAYO : 1955 Requested By: Order Number: [id number] Reading MD: Octavio Wright MD Measurements Intervals [place] Rate: 60 P: 27 [place]: 202 QRS: -18 QRSD: 86 T: -32 QT: 458 QTc: 458 Interpretive Statements Normal sinus rhythm Minimal voltage criteria for LVH, may be normal variant ( R in aVL ) Nonspecific T wave abnormality Electronically Signed On 08-15-2025 9:20:52 PST by Octavio Wright MD
--- NOTE | 2025-08-14 20:54 | DI.CT.S_ITS ---
PROCEDURE: CT ANGIO HEAD AND NECK INDICATIONS: stroke TECHNIQUE: After the administration of intravenous contrast, 1 mm thick sections acquired from the aortic arch through the [place] of [place]. 3-dimensional hphmlna-hpdfnoznb-dhothlwzjn (MIP) and/or volume rendering reformats were acquired of the central intracranial vasculature and neck separately. For radiation dose reduction, the following was used: automated exposure control, adjustment of mA and/or kV according to patient size. COMPARISON: None. FINDINGS: Image quality: Diagnostic. Cerebral CT Angiogram: Internal carotid arteries: Atherosclerotic calcifications of the bilateral cavernous ICA segments. No flow-limiting stenosis. No occlusion. No aneurysm. Anterior cerebral arteries: No significant stenosis. No occlusion. No aneurysm. Middle cerebral arteries: No significant stenosis. No occlusion. No aneurysm. Posterior cerebral arteries: No significant stenosis. No occlusion. No aneurysm. Basilar artery: No significant stenosis. No occlusion. No aneurysm. Vertebral arteries: Unremarkable as visualized. Dural venous sinuses: Unremarkable given phase of enhancement. Other: Arterial phase appearance of the brain parenchyma is unremarkable. Neck CT Angiogram: Internal carotid arteries: Atherosclerotic plaque of the proximal internal carotid arteries bilaterally without flow limiting stenosis. No dissection or occlusion. Common carotid arteries: Calcified and noncalcified atherosclerotic plaque of the distal right common carotid artery at the bifurcation, without flow-limiting stenosis. Under sclerotic calcification of the distal left common carotid artery without flow- limiting stenosis. No dissection or occlusion. External carotid arteries: Unremarkable. No occlusion. Vertebral arteries: Tortuous proximal left vertebral artery with atherosclerotic plaque causing greater than 50% stenosis at the origin (7/162). No significant stenosis of the right vertebral artery. No dissection or occlusion. Aortic Arch and Mediastinum: Partially visualized aortic arch unremarkable without evidence of aneurysm. Origins of the great vessels unremarkable. Other: Multilevel degenerative changes of the cervical spine with prominent degenerative disc disease, facet and uncovertebral hypertrophy. Status post laminectomies at C3 through C7. Moderate spinal canal narrowing at C5-C6 and C6-C7. Coronary artery calcifications. Severe right glenohumeral joint degenerative changes with osseous deformation/remodeling. IMPRESSION: No significant intracranial arterial abnormality is seen. Tortuous proximal left vertebral artery with atherosclerotic plaque causing greater than 50% stenosis of the origin. The remaining neck arteries are unremarkable without flow-limiting stenosis. Chronic findings as above. Any quantitative measurements of stenosis were performed using NASCET criteria. Dictated by: Lenora Wilson M.D. on 08/14/2025 at 22:58 Approved by: Lenora Wilson M.D. on 08/14/2025 at 23:10
--- NOTE | 2025-08-14 21:08 | DI.CT.S_ITS ---
PROCEDURE: CT HEAD/BRAIN WO CON INDICATIONS: stroke TECHNIQUE: Noncontrast 4.5 mm thick angled axial sections acquired from the foramen magnum to the vertex, with coronal and sagittal reformats. For radiation dose reduction, the following was used: automated exposure control, adjustment of mA and/or kV according to patient size. COMPARISON: [facility], CT, CT HEAD/BRAIN WO CON, 04/19/2025, 12:38. FINDINGS: Image quality: Diagnostic. CSF spaces: Basal cisterns are patent. No extra-axial fluid collections. Mild global parenchymal volume loss with associated prominence of the extra-axial spaces and ventricles. Brain: Mild global parenchymal volume loss. Confluent areas of periventricular and subcortical white matter hypodensity, suggestive of chronic small vessel ischemic disease. Encephalomalacia related to old infarct in the bilateral basal ganglia, unchanged. No midline shift. No intracranial mass effect or hemorrhage. Skull and face: Calvarium and visualized facial bones are intact, without suspicious lesions. Sinuses: Visualized sinuses and mastoids are clear. IMPRESSION: No acute intracranial pathology. Chronic findings as above. Dictated by: Lenora Wilson M.D. on 08/14/2025 at 22:55 Approved by: Lenora Wilson M.D. on 08/14/2025 at 22:57
--- NOTE | 2025-08-14 21:09 | ED_ITS ---
HPI - Neuro Symptoms/Deficit General Chief Complaint: Neuro Symptoms/Deficit Stated Complaint: TIA Time Seen by Provider: 08/14/25 20:37 Source: patient and EMS Mode of arrival: EMS History of Present Illness HPI Narrative: 69-year-old female with a history of a very remote seizure and multiple strokes along with an DE presents with a few sec of unresponsiveness and her tongue hanging out according to her facility where she came from via EMS. This occurred roughly 1-2 hours ago. According to EMS, the patient has been at her baseline the entire time for them and continues to stay at her baseline here at the ED she has been alert and oriented x4 and her NIH score is 0 at this time. Asymptomatic. Thirteen point review of systems negative. Related Data Home Medications ?Medication ?Instructions ?Recorded ?Confirmed acetaminophen 650 mg 650 mg PO Q12H PRN pain 05/2008/14/25 tablet,extended release (8 Hour Pain Reliever) aspirin 81 mg tablet,delayed 81 mg PO DAILY 03/03/25 1 10/15/24 release (Adult Low Dose Aspirin) atorvastatin 80 mg tablet 80 mg PO BEDTIME 03/03/25 buspirone 5 mg tablet 5 mg PO BID 03/03/25 calcium carbonate 500 mg PO QID heartburn 05/2008/14/25 cholecalciferol (vitamin D3) 50 2,000 unit PO DAILY 08/14/25 mcg (2,000 unit) capsule clopidogrel 75 mg tablet 75 mg PO DAILY 03/03/2507/27 gabapentin 100 mg capsule 100 mg PO TID nerve pain 05/2008/14/25 metoprolol tartrate 50 mg tablet 50 mg PO DAILY 08/14/25 mirtazapine 30 mg tablet (Remeron) 30 mg PO BEDTIME 08/14/25 pantoprazole 20 mg tablet,delayed 20 mg PO BID 5 08/14/25 release levothyroxine 75 mcg tablet 75 mcg PO DAILY 08/14/25 1 10/15/24 (Levo-T) lisinopril 40 mg tablet 40 mg PO DAILY 08/14/2507/27 loperamide 2 mg capsule 2 mg PO .Q24HR PRN loose sto ol 08/14/25 08/14/25 (Anti-Diarrheal (loperamide)) loperamide 2 mg capsule 2 mg PO Q6H PRN loose stool 08/14/25 08/14/25 (Anti-Diarrheal (loperamide)) Previous Rx's ?Medication ?Instructions ?Recorded sitagliptin phosphate 25 mg tablet 25 mg PO DAILY #30 tabs 04/19/25 (Januvia) Allergies Allergy/AdvReac Type Severity Reaction Status Date / Time No Known Drug Allergies Allergy Verified 05/02/25 15:24 Review of Systems Review of Systems ROS Unobtainable: All systems reviewed & are unremarkable except as noted in HPI and below Patient History Medical History Hypothyroidism (acquired) Diabetes type 2 COPD (chronic obstructive pulmonary disease) Coronary artery disease Stroke Social History household members: none alcohol intake: never Exam Narrative Exam Narrative: General: Patient appears to be in no acute distress, acting appropriately Head: normocephalic, atraumatic, HEENT: Pupils equal round reactive, eyes tracking well, neck supple, no JVD Heart: regular rate and rhythm, no murmurs, rubs, or gallops heard Lungs: clear to auscultation, no adventitious sounds Abdomen: soft , nontender, nondistended, positive bowel sounds Neurological: no focal neurological signs, moving all extremities well, alert and oriented x3, Psych: good judgment ,good insight, mood is normal. Initial Vital Signs Initial Vital Signs: Vital Signs Pulse Oximetry 93 08/14/25 20:38 Scores NIH Stroke Scale Level of Conciousness: Alert, keenly responsive Ask month/age: Answers both questions correctly. Open/close eyes, close hand: Performs both tasks correctly Best gaze horizontal: Normal Visual alcantara: No visual loss Facial palsy: Normal symetrical movement Left arm drift: No drift for full 10 sec Right arm drift: No drift for full 10 sec Left leg drift: No drift for full 5 sec Right leg drift: No drift for full 5 sec Limb ataxia: Absent Sensory on face/arms/legs: Normal, no sensory loss Best language: No aphasia, normal Dysarthria: Normal Extinction or inattention: No abnormality Total NIH Stroke scale score: 0 Course Orders Ordered: ED Orders 08/14/25 20:45 Complete Blood Count AUTO DIFF Stat Comprehensive Metabolic Panel Stat Ethanol (ETOH) Stat PTT Partial Thromboplastin Jose Stat Prothrombin Time INR Stat Troponin & CK Cardiac Panel Stat 08/14/25 20:54 CT angio head and neck Stat Urinalysis and Microscopic Stat EKG-12 Lead Stat 08/14/25 21:08 CT head/brain wo con Stat 08/14/25 22:54 Consult to Occupational Therapy Evaluate & Treat Consult to Physical Therapy Evaluate & Treat 08/15/25 06:00 Complete Blood Count AUTO DIFF DAILY Comprehensive Metabolic Panel DAILY Acetaminophen (Acetaminophen 325 Mg Tablet) 650 mg PO Q6H PRN PRN Reason: Fever/Mild Pain (1-3) Aspirin (Aspirin Ec 81 Mg Tablet) 81 mg PO DAILY [facility] Atorvastatin Calcium (Atorvastatin 20 Mg Tablet) 80 mg PO BEDTIME [facility] Buspirone HCl (Buspirone 5 Mg Tablet) 5 mg PO BID [facility] Calcium Carbonate (Calcium Carbonate 500 Mg Tab) 500 mg PO QID [facility] Clopidogrel Bisulfate (Clopidogrel 75 Mg Tablet) 75 mg PO DAILY [facility] Gabapentin (Gabapentin 100 Mg Capsule) 100 mg PO TID [facility] Sodium Chloride (Normal Saline 0.9%) 1,000 mls @ 100 mls/hr IV CONT THALIA Last Admin: 08/15/25 01:09 Dose: 100 mls/hr Documented By: RICKY Levothyroxine Sodium (Levothyroxine 75 Mcg Tablet) 75 mcg PO 0600 [facility] Lisinopril (Lisinopril 20 Mg Tablet) 40 mg PO DAILY [facility] Loperamide HCl (Loperamide 2 Mg Capsule) 2 mg PO Q6H PRN PRN Reason: Loose Stool Metoprolol Tartrate (Metoprolol Ir 50 Mg Tablet) 50 mg PO DAILY [facility] Mirtazapine (Mirtazapine 15 Mg Tablet) 30 mg PO BEDTIME [facility] Naloxone HCl (Naloxone 0.4 Mg/Ml Vial) 0.2 mg IV Q2MIN PRN PRN Reason: Opiate Reversal Non-Formulary Medication (Sitagliptin Phosphate [Januvia]) 25 mg PO DAILY [facility] Ondansetron HCl (Ondansetron 4 Mg/2 Ml Inj) 4 mg IV Q8HR PRN PRN Reason: Nausea And Vomiting Pantoprazole Sodium (Pantoprazole Dr 20 Mg Tablet) 20 mg PO BID [facility] Vitamin D (Cholecalciferol (Vitamin D3) 1,000 Unit Tablet) 2,000 unit PO DAILY THALIA Discontinued Medications Sodium Chloride (Normal Saline 0.9%) 1,000 mls @ 1,000 mls/hr IV BOLUS ONE Stop: 08/14/25 23:10 Last Infusion: 08/14/25 23:54 Dose: 0 mls/hr Documented By: Admin: 08/14/25 23:26 Dose: 1,000 mls/hr Documented By: DARVIN Loperamide HCl (Loperamide 2 Mg Capsule) 2 mg PO .Q24HR PRN PRN Reason: Loose Stool Non-Formulary Medication (Acetaminophen [8 Hour Pain Reliever]) 650 mg PO Q12H PRN PRN Reason: pain Consultations Consultation #1: consult with neuro stroke from Dr. Delgadillo who agreed that there was no acute findings from imaging. Continue patient on dual anti-platelet therapy of aspirin and Plavix. Admit the patient for observation and get an MRI of the brain with and without contrast in a.m.. Consultation #2: consult with Dr. Reilly hospitalist who graciously will admit the patient for observation. Vital Signs Vital signs: Vital Signs - 8 hr 08/14/25 20:38 08/14/25 20:43 08/14/25 20:43 Temperature Pulse Rate 59 L Respiratory Rate 21 Blood Pressure 137/61 Pulse Oximetry 93 94 Oxygen Delivery Method 08/14/25 20:44 08/14/25 21:00 08/14/25 21:01 Temperature 98.6 F Pulse Rate 63 61 61 Respiratory Rate 18 20 21 Blood Pressure 137/61 Pulse Oximetry 95 93 94 Oxygen Delivery Method Room Air 08/14/25 21:01 08/14/25 21:43 08/14/25 22:00 Temperature Pulse Rate 66 65 Respiratory Rate 19 Blood Pressure 86/47 L Pulse Oximetry 86 L 91 Oxygen Delivery Method 08/14/25 22:19 08/14/25 22:19 08/14/25 22:30 Temperature Pulse Rate 63 61 Respiratory Rate 19 18 Blood Pressure 97/48 L Pulse Oximetry 90 L 91 Oxygen Delivery Method MDM - Neuro Symptoms/Deficit Lab Data 08/14/25 20:45 08/14/25 20:45 Labs: Lab Results 08/14/25 08/14/25 Range/Units 20:38 20:45 WBC 8.3 (4.5-11.0) X10^3/uL RBC 4.79 (4.0-5.2) X10^6/uL Hgb 13.8 (12.0-16.0) g/dL Hct 42.4 (36-46) % MCV 88.6 (80-100) fL MCH 28.7 (26-34) PG MCHC 32.4 (30-36) % RDW 16.8 H (11.6-14.8) % Plt Count 221 (150-400) X10^3/uL Neut % (Auto) 50.7 (50-75) % Lymph % (Auto) 38.6 (25-40) % [place] % (Auto) 8.2 (3-14) % Eos % (Auto) 2.0 (2-4) % Baso % (Auto) 0.5 (0-2) % Neut # (Auto) 4200 (1092-0986) /uL Lymph # (Auto) 3200 (6055-1188) /uL [place] # (Auto) 700 (0-900) /uL Eos # (Auto) 200 (0-450) /uL Baso # (Auto) 0 (0-100) /uL PT 10.9 (9.4-12.5) SECONDS INR 1.0 (0.9-1.3) APTT 28 (25.1-36.5) SECONDS Sodium 139 (137-145) mmol/L Potassium 4.5 (3.4-5.1) mmol/L Chloride 106 (98-107) mmol/L Carbon Dioxide 16 L (22-32) mmol/L BUN 30 H (7-17) mg/dL Creatinine 1.46 H (0.52-1.04) mg/dL Estimated GFR 38 L (>60) mL/min BUN/Creatinine Ratio 20.5 (6-22) Glucose 197 H (70-99) mg/dL POC Whole Bld Glucose 183 H (70-99) mg/dL Calcium 9.6 (8.4-10.2) mg/dL Total Bilirubin 0.5 (0.2-1.3) mg/dL AST 44 H (14-36) IU/L ALT 47 H (<35) IU/L Alkaline Phosphatase 132 H (38-126) U/L Total Creatine Kinase 42 (30-135) U/L Troponin I < 0.012 (0.01-0.034) ng/mL Total Protein 8.7 H (6.3-8.2) g/dL Albumin 5.0 (3.5-5.0) g/dL Globulin 3.7 (1.7-4.1) g/dL Albumin/Globulin Ratio 1.4 (1.0-2.8) Ethyl Alcohol < 10 (<10) mg/dL Point of Care Testing Glucose POC 183 Imaging Data CTA - brain/neck: Radiologist's Impression: No significant intracranial arterial abnormality is seen. Tortuous proximal left vertebral artery with atherosclerotic plaque causing greater than 50% stenosis of the origin. The remaining neck arteries are unremarkable without flow-limiting stenosis. CT scan - head: Radiologist's Impression: No acute intracranial pathology ECG Data Interpretation: Left axis deviation, normal sinus rhythm, rate of 60 beats per minute with nonspecific T-wave abnormality Previous EKG also showed LVH picture with normal sinus rhythm at 77 beats per minute. MDM Narrative Medical decision making narrative: 69-year-old female with a history of multiple strokes, remote history of seizure presents with brief moment of unresponsiveness that was not witnessed along with her tongue hanging out. Unclear if the episode was due to a TIA versus seizure versus stroke. Patient already on dual antiplatelet therapy. After the discussion with neuro stroke, it was determined to keep the patient on dual antiplatelet therapy and get an MRI of the brain with and without contrast in the a.m.. Patient will be admitted under observation by the hospitalist. Discharge Plan Departure Patient Disposition: Admitted as Observation Clinical Impression: Brain TIA Admit Date/Time: 08/14/25 22:55 Admit Provider: Joaquín Reilly
[2025-08-14 21:27] LABS: INR 1.0 (0.9-1.3); Prothrombin Time 10.9 SECONDS (9.4-12.5)
[2025-08-14 21:28] LABS: Add Manual Diff / Slide Review NO; Hematocrit 42.4 % (36-46); Hemoglobin 13.8 g/dL (12.0-16.0); Lymphocytes Absolute Auto 3200 /uL (1100-4500); Mean Corpuscular HGB Conc 32.4 % (30-36); Mean Corpuscular Hemoglobin 28.7 PG (26-34); Mean Corpuscular Volume 88.6 fL (80-100); Platelet Count 221 X10^3/uL (150-400)
[2025-08-14 21:29] LABS: PTT Partial Thromboplastin Tim 28 SECONDS (25.1-36.5)
[2025-08-14 21:35] LABS: Albumin 5.0 g/dL (3.5-5.0); Blood Urea Nitrogen 30 mg/dL (7-17); Carbon Dioxide 16 mmol/L (22-32); Estimated Glomerular Filt Rate 38 mL/min (>60); HEMOLYSIS < 15 (0-50)
[2025-08-14 21:40] LABS: Alanine Aminotransferase 47 IU/L (<35); Albumin Globulin Ratio 1.4 (1.0-2.8); Alkaline Phosphatase 132 U/L (38-126); Calcium 9.6 mg/dL (8.4-10.2); Chloride 106 mmol/L (98-107); Creatine Kinase 42 U/L (30-135); Ethanol (ETOH) < 10 mg/dL (<10); Globulin 3.7 g/dL (1.7-4.1); Glucose 197 mg/dL (70-99); Potassium 4.5 mmol/L (3.4-5.1); Sodium 139 mmol/L (137-145); Total Protein 8.7 g/dL (6.3-8.2)
[2025-08-14 21:47] LABS: Troponin I < 0.012 ng/mL (0.01-0.034)
[2025-08-14] MEDS: SODIUM CHLORIDE 0.9% 1,000 ML 1000 ML IV (23:26)
--- NOTE | 2025-08-14 23:54 | PC.NURSE ---
Ns bolus continued upon transfer to floor
[2025-08-15 00:08] VITALS: BP 134/73; PULSE 57; RESP 18; TEMP 35.4; O2SAT 96
[2025-08-15 00:16] VITALS: BMI 24.7
--- NOTE | 2025-08-15 00:24 | PM.HP.1 ---
History of Present Illness History of Present Illness Date Patient Seen: 08/15/25 Time Patient Seen: 00:25 Chief complaint: TIA Narrative: 69-year-old female with past medical history of hypertension, hyperlipidemia, coronary disease, remote history of seizure not currently on antiseizure medication, multiple CVA with no reported residual deficit, hypothyroidism and kaf-orqmwar-[id number] diabetes presents with unresponsiveness. Per the staff at the care facility where the patient states, the patient was found unresponsive for few seconds with her tongue hanging out. This event started 1 to 2 hours prior to coming to our ER. By the time EMS arrived the patient was entirely back to her baseline and was oriented x 4. The patient NIH score was reported to be 0. However due to concern of a stroke the patient was brought into our ER for further evaluation. Otherwise there is no report of any recent fever, chills, nausea, vomiting, diarrhea, chest pain or shortness of breath. In the emergency room, the patient was hemodynamically stable. The patient was saturating well on room air. Labs were relatively benign except for a creatinine of 1.48 and previously 0.8 at baseline. Glucose was 197. WBC was normal. AST 44 ALT 47 CK level 42 Trope was negative at 0.01 alcohol level also less than [address] angio head and neck was reported to be shows no acute finding. Teleneuro stroke team was called per ER physician who recommend that we admit the patient to monitor overnight and a brain MRI with and without contrast in the morning. Again the patient remains stable and has no neurological deficit per ER physician within NIH of 0. PFSH Medical History Hypothyroidism (acquired) Diabetes type 2 COPD (chronic obstructive pulmonary disease) Coronary artery disease Stroke Social History household members: none alcohol intake: never Meds Home Medications and Allergies Home Medications ?Medication ?Instructions ?Recorded ?Confirmed ?Type acetaminophen 650 mg 650 mg PO Q12H PRN pain 03/03/25 08/14/25 History tablet,extended release (8 Hour Pain Reliever) aspirin 81 mg tablet,delayed 81 mg PO DAILY 03/03/25 08/14/25 History release (Adult Low Dose Aspirin) atorvastatin 80 mg tablet 80 mg PO BEDTIME 03/03/25 08/14/25 History buspirone 5 mg tablet 5 mg PO BID 03/03/25 08/14/25 History calcium carbonate 500 mg PO QID heartburn 03/03/25 08/14/25 History cholecalciferol (vitamin D3) 50 2,000 unit PO DAILY 03/03/25 08/14/25 History mcg (2,000 unit) capsule clopidogrel 75 mg tablet 75 mg PO DAILY 03/03/25 08/14/25 History gabapentin 100 mg capsule 100 mg PO TID nerve pain 03/03/25 08/14/25 History metoprolol tartrate 50 mg tablet 50 mg PO DAILY 03/03/25 08/14/25 History mirtazapine 30 mg tablet (Remeron) 30 mg PO BEDTIME 03/03/25 08/14/25 History pantoprazole 20 mg tablet,delayed 20 mg PO BID 03/03/25 08/14/25 History release sitagliptin phosphate 25 mg tablet 25 mg PO DAILY #30 tabs 04/19/25 08/14/25 Rx (Januvia) levothyroxine 75 mcg tablet 75 mcg PO DAILY 08/14/25 08/14/25 History (Levo-T) lisinopril 40 mg tablet 40 mg PO DAILY 08/14/25 08/14/25 History loperamide 2 mg capsule 2 mg PO .Q24HR PRN loose stool 08/14/25 08/14/25 History (Anti-Diarrheal (loperamide)) loperamide 2 mg capsule 2 mg PO Q6H PRN loose stool 08/14/25 08/14/25 History (Anti-Diarrheal (loperamide)) Allergies Allergy/AdvReac Type Severity Reaction Status Date / Time No Known Drug Allergies Allergy Verified 05/02/25 15:24 Review of Systems Review of Systems ROS: Yes All systems reviewed with the patient and are negative except as otherwise documented Exam Vital Signs (past 8 hours): - 08/14/25 20:38 08/14/25 20:43 08/14/25 20:43 Temperature Pulse Rate 59 L Respiratory Rate 21 Blood Pressure 137/61 Pulse Oximetry 93 94 Oxygen Delivery Method 08/14/25 20:44 08/14/25 21:00 08/14/25 21:01 Temperature 98.6 F Pulse Rate 63 61 61 Respiratory Rate 18 20 21 Blood Pressure 137/61 Pulse Oximetry 95 93 94 Oxygen Delivery Method Room Air 08/14/25 21:01 08/14/25 21:43 08/14/25 22:00 Temperature Pulse Rate 66 65 Respiratory Rate 19 Blood Pressure 86/47 L Pulse Oximetry 86 L 91 Oxygen Delivery Method 08/14/25 22:19 08/14/25 22:19 08/14/25 22:30 Temperature Pulse Rate 63 61 Respiratory Rate 19 18 Blood Pressure 97/48 L Pulse Oximetry 90 L 91 Oxygen Delivery Method 08/14/25 23:00 08/14/25 23:30 08/14/25 23:44 Temperature Pulse Rate 63 58 L Respiratory Rate 18 18 Blood Pressure 103/55 L Pulse Oximetry 91 91 Oxygen Delivery Method 08/14/25 23:44 08/15/25 00:08 Temperature 95.8 F L Pulse Rate 57 L 57 L Respiratory Rate 19 18 Blood Pressure 134/73 Pulse Oximetry 90 L 96 Oxygen Delivery Method Oxygen Delivery Method Room Air Narrative Exam Narrative: Physical Exam: GENERAL: The patient is not in any acute distressed. Awake and alert. HEENT: Nonicteric sclerae, PERRLA, EOMI. Oropharynx clear. Moist mucous membranes. Conjunctivae appear well perfused. HEART: Regular rate and rhythm without murmurs. No lower extremities edema. LUNGS: Clear to auscultation bilaterally. No wheezing, crackles or rhonchi ABDOMEN: Soft, positive bowel sounds, nontender. SKIN: No rash, no excessive bruising, petechiae, or purpura. NEUROLOGIC: AxO x 3. Cranial nerves II-XII intact without motor/sensory deficit. Objective Labs 08/14/25 20:45 08/14/25 20:45 Labs: Laboratory Results - last 24 hr 08/14/25 08/14/25 20:38 20:45 WBC 8.3 RBC 4.79 Hgb 13.8 Hct 42.4 MCV 88.6 MCH 28.7 MCHC 32.4 RDW 16.8 H Plt Count 221 Neut % (Auto) 50.7 Lymph % (Auto) 38.6 [place] % (Auto) 8.2 Eos % (Auto) 2.0 Baso % (Auto) 0.5 Neut # (Auto) 4200 Lymph # (Auto) 3200 [place] # (Auto) 700 Eos # (Auto) 200 Baso # (Auto) 0 PT 10.9 INR 1.0 APTT 28 Sodium 139 Potassium 4.5 Chloride 106 Carbon Dioxide 16 L BUN 30 H Creatinine 1.46 H Estimated GFR 38 L BUN/Creatinine Ratio 20.5 Glucose 197 H POC Whole Bld Glucose 183 H Calcium 9.6 Total Bilirubin 0.5 AST 44 H ALT 47 H Alkaline Phosphatase 132 H Total Creatine Kinase 42 Troponin I < 0.012 Total Protein 8.7 H Albumin 5.0 Globulin 3.7 Albumin/Globulin Ratio 1.4 Ethyl Alcohol < 10 Assessment & Plan Assessment & Plan narrative: Symptoms concerning for stroke admit the patient to medical telemetry under observation. Patient had a reported symptoms of unresponsive for few seconds along with sticking out her tongue. There is no reported postictal confusion. No reported witnessed seizure activity. CT and CT angio of the head and neck per verbal report was negative. Telestroke neurostroke recommended we admit the patient to monitor overnight and obtain brain MRI with and without contrast in the morning. PT OT and ST. Patient remains asymptomatic at this point. MALLORY. Likely from dehydration baseline creatinine 0.8 today 1.4. IV fluid recheck in the morning. Hyperlipidemia. Resume home statin. Hypothyroidism. Resume home Synthroid. Check T4 as recent TSH slightly low. Diabetes. Monitor glucose with subcu insulin. Hypertension. Monitor blood pressure and resume medication accordingly. History of seizure activity. Patient again has no seizure for more than 30 years per report. Will monitor for seizure activity and treat as needed. DVT prophylaxis SCDs due to observational status. CODE STATUS DNR/DNI Disposition likely home in 1 to 2 days - As the provider of this telehealth evaluation, requested by the patient's evaluating physician, I attest that I introduced myself to the patient, provided my credentials and determined that telemedicine via a real-time, 2 way interactive audio and video platform is an appropriate and effective means of providing this service. - I reviewed the patient's chart and had a discussion with the member of the patient's treatment team. - The patient and I mutually agreed with continuation of this evaluation via telemedicine. The patient consented for the telemedicine evaluation. - This virtual encounter was taken place from [place] by Dr. Joaquín Reilly. The patient was evaluated at [facility]. The encounter was approximately 35 minutes. The nurse was present during the entire time of the encounter and was able assists with the stethoscope to listen to the patients. Time-Based Coding :: [TOTAL MINUTES] spent with patient and on the chart (including review of chart, obtaining history, exam, reviewing outside data, placing orders, documenting exam and treatment plan, and counseling patient) on [DATE].
[2025-08-15] MEDS: SODIUM CHLORIDE 0.9% 1,000 ML 100 ML IV (01:09)
[2025-08-15 04:00] VITALS: PULSE 65; RESP 19; O2SAT 93
[2025-08-15 05:20] LABS: Add Manual Diff / Slide Review NO; Hematocrit 38.0 % (36-46); Hemoglobin 12.7 g/dL (12.0-16.0); Lymphocytes Absolute Auto 2300 /uL (1100-4500); Mean Corpuscular HGB Conc 33.4 % (30-36); Mean Corpuscular Hemoglobin 29.2 PG (26-34); Mean Corpuscular Volume 87.2 fL (80-100); Platelet Count 198 X10^3/uL (150-400)
[2025-08-15 05:33] LABS: Alanine Aminotransferase 37 IU/L (<35); Albumin 4.4 g/dL (3.5-5.0); Albumin Globulin Ratio 1.3 (1.0-2.8); Alkaline Phosphatase 129 U/L (38-126); Blood Urea Nitrogen 27 mg/dL (7-17); Calcium 8.8 mg/dL (8.4-10.2); Carbon Dioxide 18 mmol/L (22-32); Chloride 110 mmol/L (98-107); Estimated Glomerular Filt Rate 53 mL/min (>60); Globulin 3.5 g/dL (1.7-4.1); Glucose 115 mg/dL (70-99); HEMOLYSIS < 15 (0-50); Potassium 4.0 mmol/L (3.4-5.1); Sodium 140 mmol/L (137-145); Total Protein 7.9 g/dL (6.3-8.2)
[2025-08-15 05:50] LABS: Free T4, Direct Thyroxine 1.12 ng/dL (0.78-2.19)
[2025-08-15] MEDS: LEVOTHYROXINE 75 MCG TABLET PO (06:06)
[2025-08-15 06:11] VITALS: BP 152/77; TEMP 35.7
[2025-08-15 08:00] VITALS: BP 136/72; PULSE 66; RESP 16; TEMP 36.5; O2SAT 94
[2025-08-15] MEDS: CHOLECALCIFEROL (VITAMIN D3) 1,000 UNIT TABLET 2000 UNIT PO (09:12)
[2025-08-15] MEDS: METOPROLOL IR 50 MG TABLET PO (09:12)
[2025-08-15] MEDS: CALCIUM CARBONATE 500 MG TAB PO (09:12)
[2025-08-15] MEDS: ASPIRIN EC 81 MG TABLET PO (09:12)
[2025-08-15] MEDS: CLOPIDOGREL 75 MG TABLET PO (09:13)
[2025-08-15] MEDS: PANTOPRAZOLE DR 20 MG TABLET PO (09:13)
[2025-08-15] MEDS: GABAPENTIN 100 MG CAPSULE PO (09:13)
--- NOTE | 2025-08-15 10:48 | PT.IIE ---
Medical History (Last Reviewed 03/04/25 @ 08:04 by Shahbaz Og MD) COPD (chronic obstructive pulmonary disease) Coronary artery disease Diabetes type 2 Hypothyroidism (acquired) Stroke Physical Therapy Inpatient Evaluation/Re-Eval M1 PT IP Prior Functional Status Start: 08/15/25 10:49 Freq: Status: Active Protocol: Document 08/15/25 10:50 NW (Rec: 08/15/25 10:59 NW [id number]) Medical Review Prior Functional Status Communication I Mobility and Gait I Activities of Daily I Living and IADL's Prior Functional Notable weakness and ROM deficits in RUE, secondary to Level (Other details chronic shoulder dislocation. ) Social History Household Members none Living Arrangements Assisted Living Home Environment High Toilet,Walk in Shower Home Equipment Grab Bars In Shower M2 PT-IP Current Condition Start: 08/15/25 10:49 Freq: Status: Active Protocol: Document 08/15/25 10:50 NW (Rec: 08/15/25 10:59 NW [id number]) Physical Therapy Current Condition Current Condition Evaluation Date 08/15/25 Treatment Diagnosis Possible TIA Onset Date 08/14/25 M3 PT-IP Subjective Start: 08/15/25 10:49 Freq: Status: Active Protocol: Document 08/15/25 10:50 NW (Rec: 08/15/25 10:59 NW [id number]) Subjective Physical Therapy Visit Type Type Initial Evaluation Visit Start Time 10:30 Visit Stop Time 10:48 Number of OPTOMECHANICAL ENGINEER Visits 0 Physical Therapy Visit Comments Patient Comments Pt is tired and wants to sleep. Feels like she is at her baseline. Patient Goals To go home. M4 PT-IP Mobility and Gait Start: 08/15/25 10:49 Freq: Status: Active Protocol: Document 08/15/25 10:50 NW (Rec: 08/15/25 10:59 NW [id number]) PT-Bed Mobility Assessment Supine to Sit Supine to Sit Standby Assistance Sit to Supine Sit to Supine Standby Assistance Scooting Scooting to Edge of Standby Assistance Bed PT-Transfer Assessment Sit to and From Stand Sit to and from Standby Assistance Stand Equipment Transfer Assistive Gait Belt,Front Wheeled Walker Device Transfers Transfer Destination Bed Transfer Technique Stand Step Pivot Transfer Ability Level of Assist Standby Assistance,1 Person Assistance,Use of Upper Extremities Comments Mobility Comments Adequate power production with use of UE with FWW. No instances of loss of balance once upon standing. Good AD managment. Gait Assessment Gait Gait Assistance Standby Assistance Required: Distance (Feet) 80 Assistive Devices Assistive Device Gait Belt,Front Wheeled Walker Gait Deviations General Gait Pattern Decreased Stride Length,Decreased Feet Clearance Comments Gait Comments Pt has WFL of LE strength, but with ambulation has shuffling of bilateral feet with decreased foot clearance (possible secondary to donned slippers). Extra time required for turning to L. No cues necessary for AD management or pathfinding. PT-Balance Assessment Sitting Balance and Reactions Static Sitting Normal Balance Ability Dynamic Sitting Good Balance Ability Standing Balance and Reactions Static Standing Good Balance Ability Dynamic Standing Fair Balance Ability Device Used FWW Comments Other Balance Tests/ Able to stand without UE or posterior support with no Deviations/Treatment loss of balance. : M5 PT-IP Objective Assessments Start: 08/15/25 10:49 Freq: Status: Active Protocol: Document 08/15/25 10:50 NW (Rec: 08/15/25 10:59 NW [id number]) Orientation Orientation/Cognition Level of Alertness Alert Orientation Name,Age,Birthday,Month,Date,Year,Day of Week,Place, Situation Safety Awareness Understands Safety Issues Memory Description No Deficits Noted Gross Range of Motion Upper Extremity ROM Assessment Right Impaired Impairments shoulder flexion/abduction Lower Extremity ROM Assessment Within Functional Limits Strength Upper Extremity Strength Assessment Right Impaired Shoulder 2+/5 flexion, abd, ER Lower Extremity Strength Assessment Within Functional Limits Sensation Assessment Sensation Gross Sensation WNL Muscle Tone Muscle Tone WNL Yes M6 PT-IP Treatment Start: 08/15/25 10:49 Freq: Status: Active Protocol: Document 08/15/25 10:50 NW (Rec: 08/15/25 10:59 NW [id number]) Physical Therapy Treatment Education Education Provided Safety Other Treatments Other Treatment Education of continued use of FWW for ambulation and to Performed only get up with staff present. M7 PT-IP Assessment and Plan Start: 08/15/25 10:49 Freq: Status: Active Protocol: Document 08/15/25 10:50 NW (Rec: 08/15/25 10:59 NW [id number]) PT Summary Assessment and Plan Potential Rehabilitation Good Potential Status of Condition Stable at Evaluation Summary Progress Towards Safe For Discharge Goals Assessment Summary Agueda is a 69 yr old female admitted for possible TIA with no findings with head CT and MRI. Pt at baseline ambulates with FWW within assisted living facility at will and requires no assistance for ADLs. Today upon assessment pt has WFL strength and is SBA for bed mobility, transfers, and gait with FWW. No cues necessary for safety awareness nor pathfinding with ambulation. Pt appears at functional baseline and does not require further PT services to address new impairments. Frequency of Treatment Frequency Of Discharge Treatment Treatment Plan Physical Therapy Bed Mobility Training,Transfer Training,Gait Training, Treatment Plan Therapeutic Exercise,Balance Retraining,Discharge Planning,Neuromuscular Re-ed Precautions Other Precautions falls risk Recommendations To Nursing Amount of Assist Standby Assistance,1 Person Assist Needed Discharge Recommendations PT Discharge Home with Assistance Recommendations Other Discharge To continue with as much independent functional Recommendations mobility as possible. Transportation Needs Private Vehicle at Discharge - PT assist 1
--- NOTE | 2025-08-15 10:56 | PM.DS.IH.1 ---
History of Present Illness History of Present Illness Date Patient Seen: 08/15/25 Time Patient Seen: 07:56 Chief complaint: TIA Narrative: 69-year-old female with past medical history of hypertension, hyperlipidemia, coronary disease, remote history of seizure not currently on antiseizure medication, multiple CVA with no reported residual deficit, hypothyroidism and [id number]-[id number] diabetes presents with unresponsiveness. Per the staff at the care facility where the patient states, the patient was found unresponsive for few seconds with her tongue hanging out. This event started 1 to 2 hours prior to coming to our ER. By the time EMS arrived the patient was entirely back to her baseline and was oriented x 4. The patient NIH score was reported to be 0. However due to concern of a stroke the patient was brought into our ER for further evaluation. Otherwise there is no report of any recent fever, chills, nausea, vomiting, diarrhea, chest pain or shortness of breath. In the emergency room, the patient was hemodynamically stable. The patient was saturating well on room air. Labs were relatively benign except for a creatinine of 1.48 and previously 0.8 at baseline. Glucose was 197. WBC was normal. AST 44 ALT 47 CK level 42 Trope was negative at 0.01 alcohol level also less than [address] angio head and neck was reported to be shows no acute finding. Teleneuro stroke team was called per ER physician who recommend that we admit the patient to monitor overnight and a brain MRI with and without contrast in the morning. Again the patient remains stable and has no neurological deficit per ER physician within NIH of 0. Discharge Providers Provider Date of admission: 08/14/25 22:55 Discharge Date: 08/15/25 Consults: 08/14/25 22:54 Consult to Occupational Therapy Evaluate & Treat Comment: Physician Instructions: Evaluate and treat Consult to Physical Therapy Evaluate & Treat Comment: Physician Instructions: Evaluate and Treat Discharge provider: Jackson Pham MD Summary Hospital Course Discharge Diagnosis: 1. Altered level of consciousness, etiology unclear, ruled out for stroke, possibly due to dehydration 2. Acute kidney injury due to volume depletion 3. Diabetes mellitus, type 2 4. Hypertension 5. Hyperlipidemia 6. Hypothyroidism Hospital Course: The patient was admitted overnight and monitored with serial neurologic exams on telemetry. She had no new neurologic events. She was given IV fluids overnight and creatinine improved from 1.46 mg/dL to 1.11 mg/dL. Brain MRI was unremarkable. There were no comfortable causes found for her presenting symptoms on neuroimaging. She stated she was feeling better and interested in discharge back to her assisted-living facility. No other issues arose Status at Discharge Cognitive/behavioral status at discharge: oriented Functional status at discharge: independent ambulation Overall status at discharge: patient is back to baseline Time Spent with Patient Time spent: Greater than 30 minutes Exam Vital Signs (past 8 hours): - 08/15/25 04:00 08/15/25 06:11 08/15/25 08:00 Temperature 96.3 F L 97.7 F Pulse Rate 65 66 Respiratory Rate 19 16 Blood Pressure 152/77 H 136/72 Pulse Oximetry 93 94 Oxygen Flow Rate 0 0 Oxygen Delivery Method Room Air Oxygen Flow Rate 0 Narrative Exam Narrative: GENERAL: Female patient in no acute distress. Awake and alert, pleasant. HEENT: Nonicteric sclerae, PERRLA, EOMI. Oropharynx clear. Moist mucous membranes. HEART: Regular rate and rhythm without murmurs. LUNGS: Clear to auscultation bilaterally. No wheezing, crackles or rhonchi ABDOMEN: Soft, positive bowel sounds, nontender. EXTREMITIES: No edema. SKIN: No rash, no excessive bruising, petechiae, or purpura. NEUROLOGIC: AxO x 3. Cranial nerves II-XII intact without motor/sensory deficit. Objective Imaging *: My impression: Normal sinus rhythm at 60 beats per minute Minimal voltage criteria for LVH, may be normal variant ( R in aVL ) Nonspecific T wave abnormality Radiologist's impression: 1. Head CT 08/14/2025: No acute intracranial pathology. Chronic findings as above. 2. Head/neck CTA 08/14/2025: No significant intracranial arterial abnormality is seen. Tortuous proximal left vertebral artery with atherosclerotic plaque causing greater than 50% stenosis of the origin. The remaining neck arteries are unremarkable without flow-limiting stenosis. Chronic findings as above. 3. Brain MRI 08/15/2025: No findings of acute or subacute infarction can be seen. Labs 08/15/25 05:00 08/15/25 05:00 Labs: Laboratory Results - last 24 hr 08/14/25 08/14/25 08/15/25 20:38 20:45 05:00 WBC 8.3 6.9 RBC 4.79 4.36 Hgb 13.8 12.7 Hct 42.4 38.0 MCV 88.6 87.2 MCH 28.7 29.2 MCHC 32.4 33.4 RDW 16.8 H 16.8 H Plt Count 221 198 Neut % (Auto) 50.7 53.3 Lymph % (Auto) 38.6 33.6 [place] % (Auto) 8.2 10.4 Eos % (Auto) 2.0 2.1 Baso % (Auto) 0.5 0.6 Neut # (Auto) 4200 3700 Lymph # (Auto) 3200 2300 [place] # (Auto) 700 700 Eos # (Auto) 200 100 Baso # (Auto) 0 0 PT 10.9 INR 1.0 APTT 28 Sodium 139 140 Potassium 4.5 4.0 Chloride 106 110 H Carbon Dioxide 16 L 18 L BUN 30 H 27 H Creatinine 1.46 H 1.11 H Estimated GFR 38 L 53 L BUN/Creatinine Ratio 20.5 24.3 H Glucose 197 H 115 H POC Whole Bld Glucose 183 H Calcium 9.6 8.8 Total Bilirubin 0.5 0.3 AST 44 H 34 ALT 47 H 37 H Alkaline Phosphatase 132 H 129 H Total Creatine Kinase 42 Troponin I < 0.012 Total Protein 8.7 H 7.9 Albumin 5.0 4.4 Globulin 3.7 3.5 Albumin/Globulin Ratio 1.4 1.3 Free T4 1.12 Ethyl Alcohol < 10 08/15/25 08:02 WBC RBC Hgb Hct MCV MCH MCHC RDW Plt Count Neut % (Auto) Lymph % (Auto) [place] % (Auto) Eos % (Auto) Baso % (Auto) Neut # (Auto) Lymph # (Auto) [place] # (Auto) Eos # (Auto) Baso # (Auto) PT INR APTT Sodium Potassium Chloride Carbon Dioxide BUN Creatinine Estimated GFR BUN/Creatinine Ratio Glucose POC Whole Bld Glucose 107 H Calcium Total Bilirubin AST ALT Alkaline Phosphatase Total Creatine Kinase Troponin I Total Protein Albumin Globulin Albumin/Globulin Ratio Free T4 Ethyl Alcohol [facility] Medical History COPD (chronic obstructive pulmonary disease) Coronary artery disease Diabetes type 2 Hypothyroidism (acquired) Stroke Social History household members: none alcohol intake: never Discharge Plan Discharge Plan Patient Disposition: Assisted Living Transfer to: [facility] Transportation: Facility vehicle Consult as needed: Dental, Hearing, Mental health, Podiatry and Vision Discharge orders & Medications Discharge Orders: Discharge (Order); Ordered 08/15/25 Ordered By: Jackson Pham Prescriptions: Continued gabapentin 100 mg capsule 100 mg PO TID metoprolol tartrate 50 mg tablet 50 mg PO DAILY aspirin [Adult Low Dose Aspirin] 81 mg tablet,delayed release (DR/EC) 81 mg PO DAILY pantoprazole 20 mg tablet,delayed release (DR/EC) 20 mg PO BID clopidogrel 75 mg tablet 75 mg PO DAILY cholecalciferol (vitamin D3) 50 mcg (2,000 unit) capsule 2,000 unit PO DAILY buspirone 5 mg tablet 5 mg PO BID acetaminophen [8 Hour Pain Reliever] 650 mg tablet extended release 650 mg PO Q12H PRN (Reason: pain) mirtazapine [Remeron] 30 mg tablet 30 mg PO BEDTIME atorvastatin 80 mg tablet 80 mg PO BEDTIME calcium carbonate 200 mg calcium (500 mg) tablet,chewable 500 mg PO QID Januvia 25 mg tablet 25 mg PO DAILY Qty: 30 0RF lisinopril 40 mg tablet 40 mg PO DAILY levothyroxine [Levo-T] 75 mcg tablet 75 mcg PO DAILY loperamide [Anti-Diarrheal (loperamide)] 2 mg capsule 2 mg PO .Q24HR PRN (Reason: loose stool) Rx Instructions: Give two tabs once after FIRST loose stool. loperamide [Anti-Diarrheal (loperamide)] 2 mg capsule 2 mg PO Q6H PRN (Reason: loose stool) Rx Instructions: Give 1 tab by mouth as needed after each loose stool, not exceeding 8mg in 24hr. Visit Report/Discharge Packet Stand Alone Forms: [employer], Patient Portal/API, Stroke Signs & Symptoms, Influenza Vaccine Info, Notice of Privacy Practices, Inpatient vs Outpatient, Pneumococcal Vaccine Info, Pt. Rights & Responsibilities Discharge Data Attending Provider: Joaquín Reilly Admit Date/Time: 08/14/25 22:55 Quality MIPS - Admit I confirm the patient?s Advance Care Plan is present, Code status is documented, Surrogate decision maker is in patient?s record [If Yes, STOP here]: Yes MIPS - Meds 'Current medications' to include all prescriptions, [id number] products, herbals, cannabis/cannabidiol products, and vitamin/mineral/dietary (nutritional) supplements. I have utilized all available resources to obtain, update, or review the patient?s current medications. [If Yes, STOP here]: Yes MIPS - DC The patient has a history of heart transplant or Left Ventricular Assist Device (LVAD). If yes, STOP here.: No The patient has current or prior documentation of left ventricular ejection fraction (LVEF) less than or equal to 40%, or moderate or severely depressed left ventricular systolic function.: No A. The patient was prescribed or already taking an Angiotensin-Converting Enzyme (CECILIO) Inhibitor, or Angiotensin Receptor Namrata (ARB).: Yes B. The patient was prescribed or already taking a beta-namrata. [If Yes to Both A & B, STOP here]: Yes Patient not prescribed/taking CECILIO or ARB, no reason given.: No Patient not prescribed/taking beta-namrata, no reason given.: No PROFEE Charge Codes Discharge inpatient/observation: [id number]
--- NOTE | 2025-08-15 13:06 | CM.DANOTE ---
DCP Assessment note pt is a 69yo F here for stroke r/o. per provider,MRI neg. cleared for home. per PT, cleared for back to [facility] mobilizing likely at baseline. no further DCP recs at this time. per chart, lives at [facility]. hx of [facility]. BRIM WELT SEWING MACHINE OPERATOR faxed clinicals. placed signed med list in chart. updated RN. BRIM WELT SEWING MACHINE OPERATOR left vms with [facility] x5, no response. called Chad (admin for [facility] at this time) said he would get someone to call me. will continue to follow closely. anticipate back to [facility] today. KHUSHI Curry Discharge Planning/Care Management CM Discharge Assessment Start: 08/14/25 23:33 Freq: Status: Active Protocol: Document 08/15/25 13:01 (Rec: 08/15/25 13:03 [id number]) Discharge Planning Assessment Assigned Discharge KHUSHI Powers Confectionery Cooker Provider [facility] provider at [facility]? None listed Insurance Medicaid,[facility] DPOA/Assigned Edwar son Designee Name Contact Information [phone] Advance Directives? Yes: POLST Advance Directives Yes on File History Provided By Patient,Medical Record Prior Living Assisted Living Arrangements Household Members none Type of Relies on Others transporation used prior to admit Facility Name [facility] Admitted From: Willing to Return to Yes Facility? Discharge Plan Assisted Living Facility Transportation Facility Arrangement Referrals Initiated None needed Review Status In Process Please Provide Date 08/15/25 Initial DC Assessment Was Performed Next Review Type Continued Stay Review
--- NOTE | 2025-08-15 15:10 | PC.NURSE ---
Patient d/c teaching done with patient. Patient states understanding of information. No questions on concerns regarding d/c. IV removed by MANAGER NURSING. Call out to facility for pick-up. Staff inquired about a general black pickler time for patient. Facility states, We will show up when we show up for transportation.
== END 2025-08-15 15:13 ==
LOC: ED 22:55 → AC 22:56
PROVIDERS: Admitting Provider Internal Medicine; Emergency Provider Family Medicine; Visit Provider Internal Medicine
DX: R40.4 Transient alteration of awareness (principal); E86.9 Volume depletion, unspecified; R29.700 NIHSS score 0; N17.9 Acute kidney failure, unspecified; E11.9 Type 2 diabetes mellitus without complications; E03.9 Hypothyroidism, unspecified; I10 Essential (primary) hypertension; I25.2 Old myocardial infarction; Z86.73 Personal history of transient ischemic attack (TIA), and cerebral infarction without residual deficits; Z66 Do not resuscitate; Z79.84 Long term (current) use of oral hypoglycemic drugs
CPT/HCPCS: 36415; 70450; 70496; 70498; 70551; 80053; 80320; 82550; 82962; 84439; 84484; 85025; 85610; 85730; 93005; 93010; 97161; 99284; G0378; J7030; Q9967